=== PATIENT | male | born 1960 | race Caucasian/White ===

== ENCOUNTER 2018-05-23 20:22 | Inpatient (IN) | payer OTHER, SELFPAY ==
[~2018-05-23 20:22] MED LIST: ISOVUE-370 76%-LOCM 1 ML ONE
--- NOTE | 2018-05-23 21:08 | RAD ---
PORTABLE AP CHEST X-RAY: 05/23/2018 HISTORY: Worsening shortness of breath. History of scleroderma and emphysema. Raynaud's syndrome. Dyspnea. COMPARISON: None available. FINDINGS: The cardiac silhouette is magnified by projection but does appear mildly enlarged. There is a mild i ncrease in the interstitial densities at each lung base and, to a lesser extent, in the upper lung zo benny. Findings could potentially be related to chronic interstitial lung changes, but asymmetric pulm onary edema or an infectious process are differential considerations. The pulmonary vasculature is w ithin normal limits. The osseous structures are intact. IMPRESSION: Increased interstitial densities bilaterally, greater at each lung base, probably related to chronic interstitial lung changes, as opposed to asymmetric pulmonary edema or an infectious process. POS: [facility]
[2018-05-23] MEDS ORDERED: methylPREDNISolone Sod Succ/PF 125 MG/2 ML VIAL ONE (21:17)
[2018-05-23] MEDS ORDERED: Morphine 4 MG/ML VIAL ONE (21:17)
[2018-05-23] MEDS ORDERED: Ondansetron HCl/PF 4 MG/2 ML Vial ONE (21:17)
[2018-05-23] MEDS ORDERED: Albuterol Sulfate 2.5 mg/3 ml Neb ONE ×3 (21:27→21:28)
--- NOTE | 2018-05-23 22:37 | CT ---
CT ANGIOGRAM THORAX WITH IV CONTRAST AND 3D RECONSTRUCTIONS: 05/23/2018 HISTORY: Shortness of breath. Hypoxia. Scleroderma. History of COPD. COMPARISON: None available. FINDINGS: Vascular calcifications are seen in the thoracic aorta, but the thoracic aorta is normal in caliber w ithout evidence of an aortic dissection. The heart is enlarged. No filling defects are seen in the pulmonary arteries to suggest a pulmonary embolus. There are multiple enlarged lymph nodes seen throughout the mediastinum, including the subc arinal region, as well as soft tissue density in the bilateral hilar regions. Some of these lymph no gavin are calcified. The largest lymph node in the right hilar region measures 3.3 cm x 2.5 cm, with a subcarinal lymph node measuring approximately 2.4 cm in short axis dimension. The largest pretrache al lymph node measures approximately 1.2 cm in short axis dimension, with a prevascular lymph node me asuring 1.4 cm in short axis dimension. There are diffuse emphysematous changes seen throughout the lungs bilaterally, much greater in the up per lobes. There is suggestion of slight honeycombing at the posterior aspect of the lungs bilateral ly. Ground glass opacities are also seen within the lungs bilaterally. Scattered linear reticulatio ns are also present. A few scattered calcified granulomata are seen. There is a 9 mm nodular density in the right middle lobe, adjacent to the mediastinum. An approximately 7 mm pulmonary nodule is seen in the left lower lobe, adjacent to the superior aspect of the major fissure, as well as an adjacent pleural-based nodu lar density, measuring 6 mm. There is a nodular density also seen within the lingula, adjacent to th e mediastinum and margin of the heart, but there does appear to be punctate calcification centrally. No pleural effusion is identified. The visualized upper abdomen demonstrates a normal CT appearance. IMPRESSION: 1. No CT evidence of a pulmonary embolus. 2. Mediastinal and hilar lymphadenopathy. Some of the lymph nodes do demonstrate calcifications. 3. Ground glass opacities within the lungs bilaterally with what appears to be mild honeycombing at the posterior aspect of the lungs bilaterally. Scattered areas of reticulation are also present. Th e findings have the appearance of nonspecific interstitial pneumonia. These findings are probably re lated to the patient's history of scleroderma. 4. Pulmonary nodules bilaterally. A 3 month follow up is suggested. 5. Chronic obstructive pulmonary disease. POS: [facility]
[2018-05-23 23:01] LABS: ALT (SGPT) 18 U/L (8-55); AST (SGOT) 90 U/L (5-34); Albumin 2.7 g/dL (3.5-5.0); Alkaline Phosphatase 92 U/L (40-150); Anion Gap 17 mmol/L (10-20); BUN (Urea Nitrogen) 45 mg/dL (8.4-25.7); Bilirubin, Total 1.3 mg/dL (0.2-1.2); Calc. Creatinine Clearance 0 mL/min (70-130); Carbon Dioxide 14 mmol/L (22-29); Chloride 102 mmol/L (98-107); Estimated GFR-MDRD 53; Globulin 5.5 g/dL (2.4-3.5); Glucose 92 mg/dL (70-105); Protein, Total 8.1 g/dL (6.0-8.3); Sodium 128 mmol/L (136-145)
[2018-05-23 23:07] LABS: Hemoglobin 6.1 g/dL (14.0-18.0); Mean Corpuscular HGB CONC 32.6 g/dL (32.0-36.0); Mean Corpuscular Hemoglobin 32.4 pg (27.0-31.0); Mean Corpuscular Volume 99.4 fL (78.0-98.0); Red Blood Cell (RBC) Count 1.88 mill/uL (4.70-6.10); White Blood Cell (WBC) Count 11.1 thou/uL (4.8-10.8)
[2018-05-23 23:30] LABS: CKMB 3.2 ng/mL (0-6.6); Troponin I 0.121 ng/mL (< 0.028)
[2018-05-23 23:34] LABS: Band 11 % (5-11); Hypochromia SLIGHT = 6-15 cells (100X) (0-5/hpf); Lymphocytes 8 % (21-51); MDiff Complete? YES; Mean Platelet Volume 12.3 fL (7.4-10.4); Monocytes 11 % (0-10); Neutrophil 70 % (42-75); PLT Morphology Comment Appears Adequate; Platelet Count 37 thou/uL (130-400); Polychromasia SLIGHT = 2-3 cells (100X) (0-2/hpf); RBC Distribution Width 27.8 % (11.5-14.5)
[2018-05-23 23:45] LABS: INR-International Normal Ratio 1.4; PTT 35.7 SEC (22.9-36.1); Prothrombin Time 17.6 SEC (12.0-14.7)
[2018-05-23 23:47] LABS: Iron 75 ug/dL (65-175); Iron Binding Capacity, Total 209 mcg/dL (261-462)
[2018-05-24] MEDS ORDERED: Ondansetron HCl/PF 4 MG/2 ML Vial IVP PRN (00:35)
[2018-05-24] MEDS ORDERED: Ondansetron ODT 4 MG TAB SL PRN (00:35)
[2018-05-24] MEDS ORDERED: Acetaminophen 325 MG TAB PO PRN ×2 (00:35→03:04)
[2018-05-24 01:06] VITALS: BMI 21.2
[2018-05-24] MEDS ORDERED: Albuterol Sulfate 2.5 mg/3 ml Neb NEB PRN (03:04)
[2018-05-24] MEDS ORDERED: Acetaminophen 650 MG Suppository PR PRN (03:04)
[2018-05-24] MEDS ORDERED: HYDROcodone/Acetaminophen 5/325 mg Tablet PO PRN (03:04)
[2018-05-24] MEDS: HYDROcodone/Acetaminophen 5/325 mg Tablet PO PRN ×4 (04:25→21:19)
[2018-05-24 08:30] LABS: Anion Gap 16 mmol/L (10-20); BUN (Urea Nitrogen) 42 mg/dL (8.4-25.7); Calc. Creatinine Clearance 49 mL/min (70-130); Calcium 8.4 mg/dL (7.8-10.44); Carbon Dioxide 15 mmol/L (22-29); Chloride 99 mmol/L (98-107); Estimated GFR-MDRD 51; Glucose 193 mg/dL (70-105); Potassium 4.9 mmol/L (3.5-5.1); Sodium 125 mmol/L (136-145)
[2018-05-24] MEDS: Famotidine 20 MG TAB PO SCH ×2 (08:33→21:17)
[2018-05-24 08:40] LABS: Hemoglobin 9.2 g/dL (14.0-18.0); Mean Corpuscular HGB CONC 32.9 g/dL (32.0-36.0); Mean Corpuscular Hemoglobin 31.1 pg (27.0-31.0); Mean Corpuscular Volume 94.7 fL (78.0-98.0); Mean Platelet Volume 15.5 fL (7.4-10.4); Platelet Count 20 thou/uL (130-400); Red Blood Cell (RBC) Count 2.96 mill/uL (4.70-6.10); White Blood Cell (WBC) Count 5.4 thou/uL (4.8-10.8)
[2018-05-24 10:07] LABS: #Eosinphils 0.1 thou/uL (0.0-0.7); #Lymphocytes 0.5 thou/uL (1.20-3.40); #Monocytes 0.1 thou/uL (0.11-0.59); #Neutrophils 4.7 thou/uL (1.40-6.50); %Basophils 0.1 % (0.0-1.0); %Eosinophils 1.2 % (0.0-10.0); %Monocytes 1.6 % (0.0-10.0); %Neutrophils 87.1 % (42.0-75.0); Large Platelets SLIGHT; MDiff Complete? YES; PLT Morphology Comment Appears Decreased
--- NOTE | 2018-05-24 11:51 | CON ---
DATE OF CONSULTATION: 05/24/2018 HISTORY OF PRESENT ILLNESS: The patient is a 57-year-old male who was in his normal state of health until a few weeks prior to admission when he began having progressive shortness of breath. This worsened much more yesterday and he came to the emergency room. He denies any melena, hematoch ezia, any abdominal pain, any nausea or vomiting. He has lost a bunch of weight recently, he says be cause of the anorexia and some nausea. He has had hepatitis C in the past, but has never been told h e was cirrhotic. He does not recall having a liver biopsy. His first recollection for hepatitis C w as 30 years ago when he was on the oil [place]. He got sick and went to the hospital, but he has not had any problems since. He drank alcohol up until approximately 6 months ago. PAST MEDICAL HISTORY: Includes scleroderma, Raynaud's disease, chronic obstructive pulmonary disease , hepatitis C. PAST SURGICAL HISTORY: Partial colectomy for diverticulitis, appendectomy. MEDICATIONS: CellCept 500 mg 2 p.o. b.i.d., prednisone 10 mg 1 p.o. daily, hydroxyzine 25 mg 1 p.o. daily, spironolactone 50 mg 1 p.o. daily, nifedipine 30 mg 1 p.o. daily. ALLERGIES: No known allergies. SOCIAL HISTORY: He continues to smoke. He stopped drinking alcohol 6 months ago. FAMILY HISTORY: Negative for GI or liver disease. REVIEW OF SYSTEMS: CONSTITUTIONAL: Positive for weight loss. Negative for fever or chills. EYES: No blurred vision or double vision. ENT: No sore throat or earaches. PULMONARY: Positive for shortness of breath. Positive for dyspnea on exertion. CARDIOVASCULAR: No chest pain or palpitations. GI: See above. GENITOURINARY: No hematuria or dysuria. MUSCULOSKELETAL: Positive for scleroderma. SKIN: Positive for scleroderma. NEUROLOGIC: No numbness or seizure activity. PHYSICAL EXAMINATION: GENERAL: Shows a thin white male in no acute distress. VITAL SIGNS: Temperature 98.2, pulse 91, respiratory rate 19, blood pressure 136/82. HEENT: Unremarkable. NECK: Supple. CHEST: Clear. CARDIOVASCULAR: Regular rate and rhythm. ABDOMEN: Soft, nontender, without organomegaly or masses. Bowel sounds are present and normoactive. He has a well healed surgical scar in the midline. RECTAL: Deferred. EXTREMITIES: Normal. NEUROLOGIC: Nonfocal. LABORATORY: Shows a white blood cell count 11.1, hemoglobin 6.1, hematocrit 18.6 with a platelet cou nt of 37,000. Repeat showed a white blood cell count of 5.4, hemoglobin 9.2, hematocrit 28.0 with a platelet count of 20,000. PT is 17.6 with an INR of 1.4. Chemistry on admission shows sodium 128, C O2 14, BUN 45, creatinine 1.38, total bilirubin 1.3, AST 90. BMP 145, albumin 2.7. Iron is 75, TIBC of 209, ferritin is 1668. CT angio showed no evidence of pulmonary embolism, mediastinal and hilar lymphadenopathy, ground glas s opacities in the lung. ASSESSMENT: 1. Symptomatic macrocytic anemia. 2. Severe thrombocytopenia. 3. Chronic obstructive pulmonary disease. 4. Scleroderma. 5. History of hepatitis C without history of cirrhosis. 6. Chronic obstructive pulmonary disease. RECOMMENDATIONS: 1. Proton pump inhibitor. 2. We will hold on endoscopy at this time considering the patient's severe thrombocytopenia. 3. Platelet transfusion if any signs of gastrointestinal bleeding. 4. Repeat labs. 5. Hemochromatosis laboratory. 6. Vitamin B12. 7. Folate. 8. We will follow with you.
--- NOTE | 2018-05-24 14:22 | PDOC.PN ---
- Subjective Encounter Start Date: 05/24/18 Encounter Start Time: 07:30 Subjective: no bleeding per rectum -: no sob or chest pain - Objective Resuscitation Status: Resuscitation Status FULL:Full Resuscitation MAR Reviewed: Yes Vital Signs & Weight: Vital Signs (12 hours) Temp Pulse Pulse Resp BP BP Pulse Ox 05/24/18 10:59 98.2 F 91 19 136/82 100 05/24/18 10:24 93 16 99 05/24/18 07:44 97.7 F 97 20 100 05/24/18 07:27 97.7 F 97 20 138/80 100 05/24/18 07:12 88 18 100 05/24/18 06:54 97.8 F 93 21 H 139/79 100 05/24/18 04:39 97.4 F L 100 22 H 154/71 H 100 05/24/18 04:05 97.9 F 98 20 147/76 H 100 05/24/18 04:00 97.9 F 98 20 147/76 H 100 Weight Weight 135 lb 11.2 oz I&O: 05/23/18 05/24/18 05/25/18 06:59 06:59 06:59 Intake Total 1250 Output Total 500 Balance 750 Result Diagrams: 05/24/18 07:50 05/24/18 07:50 Phys Exam - Physical Examination HEENT: PERRLA, moist MMs Neck: no JVD, supple Respiratory: no wheezing, no rales Cardiovascular: RRR, no significant murmur Gastrointestinal: soft, no distention, positive bowel sounds Musculoskeletal: no edema, pulses present Neurological: non-focal, moves all 4 limbs Psychiatric: normal affect, A&O x 3 Dx/Plan (1) Anemia Code(s): D64.9 - ANEMIA, UNSPECIFIED Status: Acute Qualifiers: Anemia type: other cause Other causes of anemia: chronic disease, other Qualified Code(s): D63.8 - Anemia in other chronic diseases classified elsewhere (2) CLEO (acute kidney injury) Code(s): N17.9 - ACUTE KIDNEY FAILURE, UNSPECIFIED Status: Acute (3) Hyponatremia Code(s): E87.1 - HYPO-OSMOLALITY AND HYPONATREMIA Status: Acute (4) COPD exacerbation Code(s): J44.1 - CHRONIC OBSTRUCTIVE PULMONARY DISEASE W (ACUTE) EXACERBATION Status: Acute (5) Scleroderma Code(s): M34.9 - SYSTEMIC SCLEROSIS, UNSPECIFIED Status: Chronic (6) Hepatitis C Code(s): B19.20 - UNSPECIFIED VIRAL HEPATITIS C WITHOUT HEPATIC COMA Status: Chronic Qualifiers: Viral hepatitis chronicity: chronic Hepatic coma status: without hepatic coma Qualified Code(s): B18.2 - Chronic viral hepatitis C (7) Coagulopathy Status: Chronic Comment: likely sec to liver disease (8) Thrombocytopenia Code(s): D69.6 - THROMBOCYTOPENIA, UNSPECIFIED Status: Chronic Comment: likely sec to hep C/?hypersplenism - Plan on steroids, nebs, empiric levaquin -: recieved 2 units prbcs, h/h around 06/25 was 03/15 on arrival -: ferritin is high at 1668 -: says he is on hep C and scleroderma treatment via [facility] -: tx to medical floor, labs in am * . Review of Systems - Medications/Allergies Allergies/Adverse Reactions: Allergies Allergy/AdvReac Type Severity Reaction Status Date / Time No Known Drug Allergies Allergy Verified 05/24/18 04:55 Medications: Current Medications Acetaminophen (Tylenol) 650 mg PO Q4H PRN PRN Reason: Headache/Fever or Pain Acetaminophen (Tylenol) 650 mg [place] Q4H PRN PRN Reason: Headache/Fever or Pain Hydrocodone Bitart/Acetaminophen ([place] 5/325) 1 tab PO Q4H PRN PRN Reason: Moderate Pain (4-6) Hydrocodone Bitart/Acetaminophen ([place] 5/325) 2 tab PO Q4H PRN PRN Reason: Severe Pain (7-10) Last Admin: 05/24/18 11:12 Dose: 2 tab Albuterol Sulfate (Ventolin) 2.5 mg NEB Q2H PRN PRN Reason: Wheezing Albuterol/Ipratropium (Duoneb) 3 ml NEB [id number] [facility] Last Admin: 05/24/18 10:24 Dose: 3 ml Famotidine (Pepcid) 20 mg PO BID [facility] Last Admin: 05/24/18 08:33 Dose: 20 mg Levofloxacin 750 mg/ Device 150 mls @ 100 mls/hr IVPB Q24HR [facility] Methylprednisolone Sodium Succinate (Solu-Medrol) 40 mg IVP Q6HR [facility] Last Admin: 05/24/18 12:07 Dose: 40 mg Pantoprazole Sodium (Protonix) 40 mg IVP Q12HR [facility] Sodium Chloride (Flush - Normal Saline) 10 ml IVF Q12HR [facility] Last Admin: 05/24/18 08:33 Dose: 10 ml Sodium Chloride (Flush - Normal Saline) 10 ml IVF PRN PRN PRN Reason: Saline Flush
[2018-05-24] MEDS: Pantoprazole 40 MG VIAL IVP SCH (21:17)
--- NOTE | 2018-05-25 00:17 | CON ---
DATE OF CONSULTATION: 05/24/2018 Mr. Doss is a 57-year-old, who has scleroderma diagnosis, He has not been told he has scleroderma lung disease. He does have Raynaud's with this. I was consulted because he was present at the Intermediate Care Unit. PAST MEDICAL HISTORY: Remarkable for, 1. Hepatitis C. 2. History of chronic obstructive pulmonary disease. 3. History of diverticulitis, requiring surgery. 4. History of an appendectomy. MEDICATIONS: Prior to admission, he is on CellCept, prednisone, hydroxyzine, Aldactone, nifedipine. SOCIAL HISTORY: He is a smoker, not a drinker. ALLERGIES: He has no drug allergies. FAMILY HISTORY: Negative for lung disease in early age. REVIEW OF SYSTEMS: [place] is, otherwise, negative. He says he feels better since he has been in the hospital. PHYSICAL EXAMINATION: VITAL SIGNS: He is afebrile, heart rate is 91, respiratory rate is 19, oximetry is 100% on room air, blood pressure 136/82. HEENT: Pupils are equal. Sclerae is anicteric. NECK: Supple, no lymphadenopathy. LUNGS: Remarkable for crackles at both lung bases. HEART: Regular rhythm. S1 and S2 are normal. ABDOMEN: Soft and nontender. EXTREMITIES: With sausage digits consistent with sclerodactyly. He also has cold fingertips and says, when in the wintertime, his fingertips turn purple. I reviewed his CT. He has an increased interstitial markings and apical bullous changes. IMPRESSION: 1. Scleroderma. 2. Mediastinal lymphadenopathy with calcifications, suggestive of old granulomatous disease. 3. Probable interstitial lung disease with the scleroderma. 4. Dyspnea on exertion that could be multifactorial. He definitely needs an echocardiogram while he is here. 5. Anemia and thrombocytopenia, which is more likely related to his chronic disease and blood loss. We are happy to follow along with the other physicians caring for him. He does not appear acutely ill at this point in time, and fortunately, he says he is feeling better. It is hard to separate out how much of his pulmonary abnormalities are related to chronic obstructive pulmonary disease. He does have apical bullous changes, but he also has an increase in interstitial markings and some ground-glass changes that are worrisome for scleroderma interstitial lung disease. We will try to get a good set of pulmonary function tests to see if this helps to sort through this. This is a 50 minute consult with 50% of time spent coordinating care MTDD
[2018-05-25] MEDS: HYDROcodone/Acetaminophen 5/325 mg Tablet PO PRN ×3 (03:44→17:38)
[2018-05-25 04:37] LABS: Platelet Count 18 thou/uL (130-400)
[2018-05-25 05:01] LABS: Band 37 % (5-11); Hemoglobin 7.9 g/dL (14.0-18.0); Lymphocytes 5 % (21-51); MDiff Complete? YES; Mean Corpuscular HGB CONC 33.8 g/dL (32.0-36.0); Mean Corpuscular Hemoglobin 32.4 pg (27.0-31.0); Mean Corpuscular Volume 95.7 fL (78.0-98.0); Mean Platelet Volume 15.5 fL (7.4-10.4); Metamyelocyte 3 % (0-0); Monocytes 5 % (0-10); Myelocyte 1 % (0-0); Neutrophil 49 % (42-75); PLT Morphology Comment Appears Decreased; RBC Distribution Width 26.5 % (11.5-14.5); Red Blood Cell (RBC) Count 2.44 mill/uL (4.70-6.10); White Blood Cell (WBC) Count 10.1 thou/uL (4.8-10.8)
[2018-05-25 05:40] LABS: Folate (Folic Acid) 16.7 ng/mL (7.0-31.4)
[2018-05-25 08:40] LABS: ALT (SGPT) 18 U/L (8-55); AST (SGOT) 100 U/L (5-34); Albumin 2.7 g/dL (3.5-5.0); Alkaline Phosphatase 86 U/L (40-150); Anion Gap 16 mmol/L (10-20); BUN (Urea Nitrogen) 48 mg/dL (8.4-25.7); Bilirubin, Total 1.8 mg/dL (0.2-1.2); Calc. Creatinine Clearance 47 mL/min (70-130); Calcium 8.3 mg/dL (7.8-10.44); Carbon Dioxide 16 mmol/L (22-29); Chloride 99 mmol/L (98-107); Estimated GFR-MDRD 48; Globulin 5.4 g/dL (2.4-3.5); Glucose 110 mg/dL (70-105); Potassium 4.7 mmol/L (3.5-5.1); Protein, Total 8.1 g/dL (6.0-8.3); Sodium 126 mmol/L (136-145)
[2018-05-25] MEDS: Pantoprazole 40 MG VIAL IVP SCH ×2 (08:43→20:07)
[2018-05-25] MEDS: Famotidine 20 MG TAB PO SCH ×2 (08:43→20:06)
[2018-05-25] MEDS: Cefepime 1 GM in Sodium Chloride 0.9% 100 ML IVPB SCH (08:44)
--- NOTE | 2018-05-25 09:01 | ULT ---
ULTRASOUND HEPATIC DOPPLER: Date: 05/25/18 HISTORY: Hepatitis C, weight loss, nausea. COMPARISON: None. TECHNIQUE: Real-time Goodman scale with color flow and spectral analysis of the liver was performed. FINDINGS: Visualized portions of the aorta unremarkable. Hepatic echotexture is somewhat heterogeneous. No mass . Normal directional flow within the hepatic arteries, portal veins, hepatic veins, splenic artery an d vein. There is adenomyomatosis of the gallbladder wall. No pericholecystic fluid. Common bile duct is normal. Right kidney measures 9.9 x 4.6 x 5.2 cm with a subcentimeter cyst. Left kidney measures 11.2 x 5.2 x 4.7 cm with a 1.0 cm cyst. Spleen is normal. IMPRESSION: Normal examination. Normal directional flow. POS: [facility]
[2018-05-25] MEDS ORDERED: VANCOMYCIN IVPB PRN (09:57)
[2018-05-25] MEDS ORDERED: Vancomycin HCl 1 GM in Premix Bag 1 BAG IVPB SCH (10:00)
[2018-05-25] MEDS: Vancomycin HCl 1 GM in Premix Bag 1 BAG IVPB SCH (11:30)
--- NOTE | 2018-05-25 12:01 | PDOC.PN ---
- Subjective Encounter Start Date: 05/25/18 Encounter Start Time: 11:50 Subjective: has exertional sob, is amb in room -: no chest pain or palp -: no fever or abd pain, last BM was 3 days back - Objective Resuscitation Status: Resuscitation Status FULL:Full Resuscitation MAR Reviewed: Yes Vital Signs & Weight: Vital Signs (12 hours) Temp Pulse Resp BP Pulse Ox 05/25/18 11:29 98.2 F 102 H 12 159/88 H 92 L 05/25/18 08:00 97.6 F 95 16 95 05/25/18 07:32 97.6 F 95 157/83 H 95 05/25/18 06:02 82 16 96 05/25/18 03:50 97.8 F 87 19 148/76 H 95 05/25/18 02:15 74 16 Weight Weight 135 lb 11.2 oz I&O: 05/24/18 05/25/18 05/26/18 06:59 06:59 06:59 Intake Total 1250 1330 Output Total 500 1375 Balance 750 -45 Result Diagrams: 05/25/18 03:45 05/25/18 03:35 Phys Exam - Physical Examination HEENT: PERRLA, moist MMs Neck: no JVD, supple Respiratory: no rales, no rhonchi Cardiovascular: RRR, no significant murmur Gastrointestinal: soft, non-tender, positive bowel sounds distention+, no rigidity or guarding Musculoskeletal: pulses present, edema present Neurological: non-focal, moves all 4 limbs Psychiatric: normal affect, A&O x 3 Dx/Plan (1) Anemia Code(s): D64.9 - ANEMIA, UNSPECIFIED Status: Acute Qualifiers: Anemia type: other cause Other causes of anemia: chronic disease, other Qualified Code(s): D63.8 - Anemia in other chronic diseases classified elsewhere (2) CLEO (acute kidney injury) Code(s): N17.9 - ACUTE KIDNEY FAILURE, UNSPECIFIED Status: Acute (3) Hyponatremia Code(s): E87.1 - HYPO-OSMOLALITY AND HYPONATREMIA Status: Acute (4) COPD exacerbation Code(s): J44.1 - CHRONIC OBSTRUCTIVE PULMONARY DISEASE W (ACUTE) EXACERBATION Status: Suspected Comment: likely interstitial lung disease with h/o scleroderma (5) Scleroderma Code(s): M34.9 - SYSTEMIC SCLEROSIS, UNSPECIFIED Status: Chronic (6) Hepatitis C Code(s): B19.20 - UNSPECIFIED VIRAL HEPATITIS C WITHOUT HEPATIC COMA Status: Chronic Qualifiers: Viral hepatitis chronicity: chronic Hepatic coma status: without hepatic coma Qualified Code(s): B18.2 - Chronic viral hepatitis C (7) Coagulopathy Status: Chronic Comment: likely sec to liver disease (8) Thrombocytopenia Code(s): D69.6 - THROMBOCYTOPENIA, UNSPECIFIED Status: Chronic Comment: likely sec to hep C/?hypersplenism (9) Immunocompromised Code(s): D84.9 - IMMUNODEFICIENCY, UNSPECIFIED Status: Acute Comment: on cellcept and prednisone (10) Sepsis Code(s): A41.9 - SEPSIS, UNSPECIFIED ORGANISM Status: Suspected Qualifiers: Sepsis type: sepsis due to unspecified organism Qualified Code(s): A41.9 - Sepsis, unspecified organism - Plan will obtain hawthorne cultures, is immunocompromized, has 37% bands -: renal function is holding up, h/h around 05/20 -: on solumedrol, protonix bid and levaquin -: bowel regimen, ruq usg was -ve for ac abnormalities -: for PFT's at some point, nebs, hco3 is 15, sod is 125 * . Review of Systems - Medications/Allergies Allergies/Adverse Reactions: Allergies Allergy/AdvReac Type Severity Reaction Status Date / Time No Known Drug Allergies Allergy Verified 05/24/18 04:55 Medications: Current Medications Acetaminophen (Tylenol) 650 mg PO Q4H PRN PRN Reason: Headache/Fever or Pain Acetaminophen (Tylenol) 650 mg [place] Q4H PRN PRN Reason: Headache/Fever or Pain Hydrocodone Bitart/Acetaminophen ([place] 5/325) 1 tab PO Q4H PRN PRN Reason: Moderate Pain (4-6) Hydrocodone Bitart/Acetaminophen ([place] 5/325) 2 tab PO Q4H PRN PRN Reason: Severe Pain (7-10) Last Admin: 05/25/18 08:42 Dose: 2 tab Albuterol Sulfate (Ventolin) 2.5 mg NEB Q2H PRN PRN Reason: Wheezing Albuterol/Ipratropium (Duoneb) 3 ml NEB Q3MT-MK [facility] Last Admin: 05/25/18 10:24 Dose: Not Given Famotidine (Pepcid) 20 mg PO BID [facility] Last Admin: 05/25/18 08:43 Dose: Not Given Cefepime HCl 1 gm/ Sodium (Chloride) 100 mls @ 200 mls/hr IVPB Q24HR [facility] Last Admin: 05/25/18 08:44 Dose: 100 mls Vancomycin HCl 1 gm/ Device 200 mls @ 200 mls/hr IVPB 1000 [facility] Last Admin: 05/25/18 11:30 Dose: 200 mls Methylprednisolone Sodium Succinate (Solu-Medrol) 40 mg IVP Q6HR [facility] Last Admin: 05/25/18 11:31 Dose: 40 mg Miscellaneous Medication (Pharmacy To Dose) 1 each IVPB PRN PRN PRN Reason: Pharmacy to dose Pantoprazole Sodium (Protonix) 40 mg IVP Q12HR [facility] Last Admin: 05/25/18 08:43 Dose: 40 mg Sodium Chloride (Flush - Normal Saline) 10 ml IVF Q12HR [facility] Last Admin: 05/25/18 08:44 Dose: 10 ml Sodium Chloride (Flush - Normal Saline) 10 ml IVF PRN PRN PRN Reason: Saline Flush
--- NOTE | 2018-05-25 14:41 | PRG ---
DATE OF SERVICE: 05/25/2018 SUBJECTIVE: Mr. Doss said he is feeling better. PHYSICAL EXAMINATION: VITAL SIGNS: He has not been febrile. Heart rate is 95-102, respiratory rate is in the teens, oximetry is 92%-95% on 2 liters and blood pressure 159/88. LUNGS: Still remarkable for crackles at his lung bases. HEART: Regular rhythm. ABDOMEN: Soft and nontender. EXTREMITIES: Without asymmetry. LABORATORY DATA: The cultures were drawn when he is in the emergency room. His white count today is 10.1, hemoglobin 7.9, platelets are 18,000. He has 37 % bands on his peripheral smear, 3% metamyelocytes, 1% myelocytes. Sodium 126, potassium 4.7, chloride 99, bicarbonate 16, BUN 48 and creatinine 1.51. Intake and output was negative 45. IMPRESSION: 1. Scleroderma. 2. Respiratory complaints consisting mainly of dyspnea on admission. He is a smoker, but does not ever appear to have undergone pulmonary function tests. His CT does show fairly scattered and extensive bullous disease. I have no doubt he has COPD and much of his dyspnea may be related to that, but he also has some ground glass abnormalities that could be consistent with scleroderma. He has mediastinal lymph nodes, but most of these are calcified arguing that is all old granulomatous disease. He is on broad spectrum antimicrobial therapy. He does not clearly have any localizing symptoms. He had an abdominal ultrasound done that was unremarkable. Other issues include, 1. Hyponatremia. 2. Non-anion gap metabolic acidosis with renal insufficiency 3. Elevated liver enzymes with a mildly increased bilirubin with normal ultrasound. 4. Chronic CellCept use. 5. Hypoalbuminemia. 6. Thrombocytopenia and anemia. He had 1.3 grams drop in hemoglobin overnight. Probably would be best if there is an input from Infectious Disease in this setting. I do not strongly feel that he needs bronchoscopy or lavage at this point given that he says he is clinically improving. I have ordered an echocardiogram just to see if we can get an estimated pulmonary artery pressures. Blood cultures were ordered by the hospitalist today. We will continue to follow with the other physician's caring for him. [facility]
--- NOTE | 2018-05-25 16:11 | PRG ---
DATE OF SERVICE: 05/25/2018 SUBJECTIVE: The patient is feeling about the same. He has no GI complaints other than not having a bowel movement for several days. OBJECTIVE: VITAL SIGNS: Temperature 98.2, pulse 85, respiratory rate 16, blood pressure 159/88. CHEST: Clear. CARDIOVASCULAR: Regular rate and rhythm. ABDOMEN: Soft, nontender, without organomegaly or masses. Bowel sounds are present and normoactive. LABORATORY DATA: Shows a sodium of 126, CO2 of 16, BUN 48, creatinine 1.51, glucose 110, total bilir ubin 1.8, AST of 100. Albumin 2.7. Alpha fetoprotein is less than 2. Vitamin B12 is 583 and folate is 16.7. CBC shows a white blood cell count 10.1, hemoglobin of 7.9, hematocrit 23.4, platelet coun t is 18,000. Abdominal ultrasound shows normal examination with normal directional blood flow. ASSESSMENT: 1. Anemia. 2. Severe thrombocytopenia - no evidence for portal hypertension. 3. Chronic obstructive pulmonary disease. 4. Scleroderma. 5. History of hepatitis C. RECOMMENDATIONS: 1. Proton pump inhibitor. 2. Hold on endoscopy at this time considering the patient's severe thrombocytopenia. 3. Platelet transfusion if any signs of GI bleeding. 4. Hematology opinion. 5. We will follow with you.
[2018-05-26 06:00] LABS: ALT (SGPT) 25 U/L (8-55); AST (SGOT) 138 U/L (5-34); Albumin 2.8 g/dL (3.5-5.0); Alkaline Phosphatase 90 U/L (40-150); Anion Gap 19 mmol/L (10-20); BUN (Urea Nitrogen) 62 mg/dL (8.4-25.7); Bilirubin, Total 2.3 mg/dL (0.2-1.2); Calc. Creatinine Clearance 37 mL/min (70-130); Calcium 8.8 mg/dL (7.8-10.44); Carbon Dioxide 14 mmol/L (22-29); Chloride 99 mmol/L (98-107); Estimated GFR-MDRD 37; Globulin 5.6 g/dL (2.4-3.5); Glucose 123 mg/dL (70-105); Potassium 4.6 mmol/L (3.5-5.1); Protein, Total 8.4 g/dL (6.0-8.3); Sodium 127 mmol/L (136-145)
--- NOTE | 2018-05-26 07:38 | CON ---
DATE OF CONSULTATION: 05/25/2018 REASON FOR CONSULTATION: Dyspnea; scleroderma, on immunosuppressive medications ; and left shift in peripheral WBC count. HISTORY OF PRESENT ILLNESS: A 57-year-old who has a history of COPD, newly diagnosed scleroderma about a year ago as well as chronic hepatitis C with previous failed treatment. The index diagnosis scleroderma was made last year when he developed Raynaud's phenomenon. Subsequently, he developed those skin changes, particularly in the hands, typical scleroderma, has been referred to [place] and was screened for a trial, but he was not accepted and has been referred to Dr. Purvis locally, on CellCept plus 20 mg of prednisone daily for management. Over the past few days, he has noticed worsening shortness of breath, some cough, no sputum production or chest pain. No headaches, no visual symptoms. No sore throat, odynophagia, or dysphagia. No abdominal pain or diarrhea. No genitourinary symptoms. He has chronic joint pains which are unchanged. PAST MEDICAL HISTORY: Scleroderma, Raynaud's disease, COPD with emphysema, chronic hepatitis C with failed treatment in the past. PAST SURGICAL HISTORY: Appendectomy and partial colectomy. SOCIAL HISTORY: Never used alcoholic beverages. He smokes daily. His does do. FAMILY HISTORY: Noncontributory. CURRENT MEDICATIONS: In the hospital include Solu-Medrol 20 mg q.6 hours, cefepime, [place], Ventolin, famotidine, pantoprazole, and vancomycin. PHYSICAL EXAMINATION: VITAL SIGNS: Temperature has been within normal limits. T-max 98.2, blood pressure 145/74, pulse 92, O2 sat 95%. SKIN: Not remarkable except for the decreased pliability of skin of the distal upper extremities with difficulty in closing the fingers into the fist. No lymphadenopathy. HEENT: Ocular movements are conjugate. Sclerae white. Pupils are equal. Oral cavity normal. NECK: Supple, no jugular vein distention. LUNGS: Symmetric air entry without obvious crackles or wheezing. HEART: S1, S2, regular rate. No S3 or S4. ABDOMEN: Soft, not distended or tender. No ascites. No bladder distention. EXTREMITIES: He is able to move extremities on command. NEUROLOGIC: Cognitive function appears to be intact. LABORATORY DATA AND IMAGING: White cell count is 11.1, down to 10.1. Hemoglobin 7.9, MCV 95, platelets were 37, now 18, neutrophil percentage 49%, myelocytes 3, lymphocytes 5. INR 1.4. Sodium 126, creatinine is down to 1.51, AST 100, bilirubin 1.8, ferritin 1600. Albumin 2.7. Microbiology: We have a stool occult blood which was negative. The patient had a chest CT scan with angiogram with no evidence of pulmonary embolism and with mediastinal and hilar adenopathy, ground-glass opacities within the lungs bilaterally, mild honeycombing posteriorly. ASSESSMENT: 1. Scleroderma with Raynaud's. 2. New onset of general malaise, dyspnea and a leukoerythroblastic response in the peripheral blood smear. DISCUSSION: Differential diagnosis includes scleroderma crisis, opportunistic infectious process including fungal such as Cryptococcus neoformans, histoplasmosis, pneumocystis as well as viral infections including community- acquired viral infections and cytomegalovirus reactivation. We will submit assays for the above, monitor blood cultures. Since he has a long hx of smoking and developed scleroderma recently, the possibility of para-neoplastic scleroderma needs to be considered. MTDD
[2018-05-26] MEDS: Cefepime 1 GM in Sodium Chloride 0.9% 100 ML IVPB SCH (08:22)
[2018-05-26 08:23] VITALS: BP 152/89; TEMP 97.8
[2018-05-26] MEDS: Pantoprazole 40 MG VIAL IVP SCH (08:23)
[2018-05-26] MEDS: Famotidine 20 MG TAB PO SCH (08:23)
[2018-05-26] MEDS: HYDROcodone/Acetaminophen 5/325 mg Tablet PO PRN ×2 (08:34→15:33)
[2018-05-26] MEDS ORDERED: Prevnar 13-Val Conj/PF 0.5 ML SYRINGE IM ONE (09:00)
[2018-05-26 10:44] LABS: Hemoglobin 7.9 g/dL (14.0-18.0); Mean Corpuscular Hemoglobin 31.4 pg (27.0-31.0); Mean Corpuscular Volume 95.3 fL (78.0-98.0); Mean Platelet Volume 16.4 fL (7.4-10.4); Platelet Count 15 thou/uL (130-400); RBC Distribution Width 31.4 % (11.5-14.5); Red Blood Cell (RBC) Count 2.52 mill/uL (4.70-6.10); White Blood Cell (WBC) Count 13.2 thou/uL (4.8-10.8)
[2018-05-26] MEDS: Vancomycin HCl 1 GM in Premix Bag 1 BAG IVPB SCH (10:46)
[2018-05-26 11:03] LABS: Anisocytosis MARKED = >30 cells (100X) (0-5/hpf); Band 22 % (5-11); Bite Cells SLIGHT = 2-5 cells (100X) (0-1/hpf); Large Platelets MODERATE; Lymphocytes 13 % (21-51); MDiff Complete? YES; Metamyelocyte 7 % (0-0); Monocytes 5 % (0-10); Myelocyte 3 % (0-0); Neutrophil 49 % (42-75); Nucleated RBC 12 % (0); PLT Morphology Comment Appears Decreased; Polychromasia MARKED = >4 cells (100X) (0-2/hpf); Reactive Lymphocytes 1 % (0-10); Schistocytes MODERATE= 6-15 cells (100X) (0-1/hpf); Spherocytes SLIGHT = 1-5 cells (100X) (None Seen)
--- NOTE | 2018-05-26 11:34 | CON ---
DATE OF CONSULTATION: 05/26/2018 REASON FOR CONSULTATION: Elevated creatinine. HISTORY OF PRESENT ILLNESS: This is a very pleasant 57-year-old gentleman with a history of hepatiti s C and a baseline creatinine of 1.3 on 05/23/2018, it has increased to 1.9 today. The patient also has a history of COPD, hepatitis C, and scleroderma and has been treated for mycophenolate as well as prednisone. The patient has had a blood pressures, which increased from 150s to 170s. The patient denies any leg swelling, nausea, vomiting or chest pain. PAST MEDICAL HISTORY: End-stage renal disease, scleroderma, COPD, hepatitis C with failed treatment, history of appendectomy, and colectomy. SOCIAL/ECONOMIC HISTORY: No alcohol or illicit drug use. FAMILY HISTORY: Negative for ESRD. ALLERGIES: Reviewed. HOME MEDICATIONS: List reviewed. REVIEW OF SYSTEMS: A 15-point review of systems was performed and negative except all noted above. GENERAL: Weakness- HEAD: Headache- NECK: No swelling or lumps. NOSE: No epistaxis or discharge. EYES: No diplopia or pain. RESPIRATORY: Dyspnea- CARDIOVASCULAR: Chest pain- GASTROINTESTINAL: Nausea- /FOOD BROKER: Hematuria- MUSCULOSKELETAL: No joint pain. NEUROPSYCHIATIC SYSTEMS: No suicidal ideation. No ideation. SKIN: Denies any rash or ulcer. CONSTITUTIONAL: No fever or chills. PHYSICAL EXAMINATION: GENERAL: Patient is awake and alert. VITAL SIGNS: Afebrile, pulse 95, breathing 16, and blood pressure 150/89. GENERAL: Patient is awake and alert. VITAL SIGNS: Afebrile, pulse 75, breathing 16, blood pressure 129/82. GENERAL APPEARANCE AND MENTAL STATUS: Fair. HEAD/NECK: Normocephalic. Atraumatic. EYES: EOMI. No deformity. EARS: Clear. No ulcers. NOSE: Intact. No lesions. MOUTH: Clear. No discharge. THROAT: Clear. No exudate. LUNGS: Clear. No crackles. CARDIAC: S1, S2. No rub. ABDOMEN: Benign. BS+. GENITALIA/RECTUM: Sabillon absent. BACK/EXTREMITIES: Edema 0+ Ulcer- NEUROLOGICAL: Alert and motor intact. SKIN: Rash- Bruise- LABORATORY DATA: Sodium 127, creatinine 1.8. ASSESSMENT AND RECOMMENDATIONS: 1. Acute kidney injury with chronic kidney disease, different etiologies include scleroderma renal c risis versus hepatitis C induced cryoglobulinemia and/or sepsis associated or interaction with antibi otic therapy and/or other possibilities include TTP, which should be ruled out. There is no urgent i ndication to do a renal biopsy. 2. Metabolic acidosis, stable. 3. Medications based on glomerular filtration rate are appropriate.
--- NOTE | 2018-05-26 12:44 | EKG ---
Test Reason : Blood Pressure : / mmHG Vent. Rate : 104 BPM Atrial Rate : 104 BPM P-R Int : 124 ms QRS Dur : 090 ms QT Int : 318 ms P-R-T Axes : 044 042 054 degrees QTc Int : 418 ms Sinus tachycardia Otherwise normal ECG Confirmed by FAM AGARWAL D.O. ([id number]), primer expeditor and drier ARTIE YI ([id number] on 05/26/2018 12:44:14 PM Referred By: Confirmed By:FAM AGARWAL D.O.
[2018-05-26 14:39] LABS: Reticulocyte Count 20.3 % (0.5-1.5)
--- NOTE | 2018-05-26 14:53 | PDOC.PN ---
- Subjective Encounter Start Date: 05/26/18 Encounter Start Time: 12:00 Subjective: no bleeding per rectum -: has sob+, abdominal fullness+ - Objective Resuscitation Status: Resuscitation Status FULL:Full Resuscitation MAR Reviewed: Yes Vital Signs & Weight: Vital Signs (12 hours) Temp Pulse Resp BP Pulse Ox 05/26/18 14:42 105 H 20 95 05/26/18 11:22 110 H 16 05/26/18 08:00 97.8 F 82 18 152/89 H 97 05/26/18 06:57 95 05/26/18 06:54 100 16 95 05/26/18 04:00 98.0 F 98 18 160/88 H 92 L Weight Weight 135 lb 11.2 oz I&O: 05/25/18 05/26/18 05/27/18 06:59 06:59 06:59 Intake Total 1330 625 240 Output Total 1375 780 Balance -45 -155 240 Result Diagrams: 05/26/18 10:24 05/26/18 05:08 Phys Exam - Physical Examination HEENT: moist MMs Neck: no JVD, supple Respiratory: no wheezing, no rales Cardiovascular: RRR, no significant murmur Gastrointestinal: soft, positive bowel sounds Musculoskeletal: pulses present, edema present Neurological: non-focal, moves all 4 limbs Psychiatric: normal affect, A&O x 3 Dx/Plan (1) Vasculitis Code(s): I77.6 - ARTERITIS, UNSPECIFIED Status: Suspected (2) TTP (thrombotic thrombocytopenic purpura) Code(s): M31.1 - THROMBOTIC MICROANGIOPATHY Status: Suspected (3) Anemia Code(s): D64.9 - ANEMIA, UNSPECIFIED Status: Acute Qualifiers: Anemia type: acquired or hereditary hemolytic anemia (4) CLEO (acute kidney injury) Code(s): N17.9 - ACUTE KIDNEY FAILURE, UNSPECIFIED Status: Acute (5) Hyponatremia Code(s): E87.1 - HYPO-OSMOLALITY AND HYPONATREMIA Status: Acute (6) COPD exacerbation Code(s): J44.1 - CHRONIC OBSTRUCTIVE PULMONARY DISEASE W (ACUTE) EXACERBATION Status: Suspected Comment: likely interstitial lung disease with h/o scleroderma (7) Scleroderma Code(s): M34.9 - SYSTEMIC SCLEROSIS, UNSPECIFIED Status: Chronic (8) Hepatitis C Code(s): B19.20 - UNSPECIFIED VIRAL HEPATITIS C WITHOUT HEPATIC COMA Status: Chronic Qualifiers: Viral hepatitis chronicity: chronic Hepatic coma status: without hepatic coma Qualified Code(s): B18.2 - Chronic viral hepatitis C (9) Coagulopathy Status: Chronic Comment: likely sec to liver disease (10) Thrombocytopenia Code(s): D69.6 - THROMBOCYTOPENIA, UNSPECIFIED Status: Chronic Comment: likely sec to hep C/?hypersplenism (11) Immunocompromised Code(s): D84.9 - IMMUNODEFICIENCY, UNSPECIFIED Status: Acute Comment: on cellcept and prednisone (12) Sepsis Code(s): A41.9 - SEPSIS, UNSPECIFIED ORGANISM Status: Suspected Qualifiers: Sepsis type: sepsis due to unspecified organism Qualified Code(s): A41.9 - Sepsis, unspecified organism - Plan has hemolytic anemia, peripheral smear results noted -: d/w , likely has TTP/vasculitis, need to transfer for plasmaphare -: renal function, platelet count and Hct is worsening -: d/w pt and his -: transfer center has been activated * . Is currently on steroids, cefipime and vanc. Review of Systems - Medications/Allergies Allergies/Adverse Reactions: Allergies Allergy/AdvReac Type Severity Reaction Status Date / Time No Known Drug Allergies Allergy Verified 05/24/18 04:55 Medications: Current Medications Acetaminophen (Tylenol) 650 mg PO Q4H PRN PRN Reason: Headache/Fever or Pain Acetaminophen (Tylenol) 650 mg ME Q4H PRN PRN Reason: Headache/Fever or Pain Hydrocodone Bitart/Acetaminophen ([place] 5/325) 1 tab PO Q4H PRN PRN Reason: Moderate Pain (4-6) Hydrocodone Bitart/Acetaminophen ([place] 5/325) 2 tab PO Q4H PRN PRN Reason: Severe Pain (7-10) Last Admin: 05/26/18 08:34 Dose: 2 tab Albuterol Sulfate (Ventolin) 2.5 mg NEB Q2H PRN PRN Reason: Wheezing Albuterol/Ipratropium (Duoneb) 3 ml NEB [id number] GIANLUCA Last Admin: 05/26/18 14:42 Dose: 3 ml Famotidine (Pepcid) 20 mg PO 0900 GIANLUCA Cefepime HCl 1 gm/ Sodium (Chloride) 100 mls @ 200 mls/hr IVPB Q24HR [facility] Last Admin: 05/26/18 08:22 Dose: 100 mls Vancomycin HCl 1 gm/ Device 200 mls @ 200 mls/hr IVPB 1000 [facility] Last Admin: 05/26/18 10:46 Dose: 200 mls Methylprednisolone Sodium Succinate (Solu-Medrol) 20 mg IVP Q6HR [facility] Last Admin: 05/26/18 11:51 Dose: 20 mg Miscellaneous Medication (Pharmacy To Dose) 1 each IVPB PRN PRN PRN Reason: Pharmacy to dose Pantoprazole Sodium (Protonix) 40 mg IVP Q12HR [facility] Last Admin: 05/26/18 08:23 Dose: 40 mg Sodium Bicarbonate (Bicarbonate, Sodium) 325 mg PO TID [facility] Sodium Chloride (Flush - Normal Saline) 10 ml IVF Q12HR [facility] Last Admin: 05/26/18 08:24 Dose: 10 ml Sodium Chloride (Flush - Normal Saline) 10 ml IVF PRN PRN PRN Reason: Saline Flush
[2018-05-26] MEDS ORDERED: Sodium Bicarbonate Tab 325 MG TAB PO SCH (15:00)
--- NOTE | 2018-05-26 15:36 | PRG ---
DATE OF SERVICE: 05/26/2018 SUBJECTIVE: Less dyspnea, no cough, some abdominal distention. Same stiffness of his joints and ski n as noted previously. PHYSICAL EXAMINATION: VITAL SIGNS: T-max 98.0, blood pressure 150/89, pulse 105, respirations 20. GENERAL APPEARANCE: He appears chronically ill. HEENT: Ocular movements are conjugate. Oral cavity normal. NECK: Supple. LUNGS: With symmetric air entry. HEART: S1, S2, regular rate. ABDOMEN: Soft with mild distention. MUSCULOSKELETAL: No joint inflammatory activity oriented. LABORATORY DATA AND IMAGING DATA: White cell count 13.2, hemoglobin 10.9 with MCV 95, platelet count 15,000, 49% neutrophils, 22% bands, 7% metamyelocytes, 3% myelocytes, 12% nucleated RBCs and patient also has moderate schistocytes noted. Cryptococcus antigen is negative. Stool culture final result s are pending. Abdominal ultrasound with normal examination. ASSESSMENT AND PLAN: 1. History of scleroderma and Raynaud's, chronic smoking. 2. New onset of general malaise, dyspnea and leukoerythroblastic response with peripheral blood smea r. Now there is evidence of schistocytes in moderate amounts, which would be consistent with the janet roangiopathic anemia in patients with scleroderma, this could be evidence of impending or progressing renal crisis, which is a development with high degree of progression and poor outcome. Since he is a chronic smoker, possibility of not yet diagnosed malignancy with a paraneoplastic scleroderma needs to be considered as well.
[2018-05-26 15:42] LABS: Bilirubin Negative (Negative); Blood, Urine Large (Negative); Clarity CLOUDY (Clear); Glucose, Urine (Dipstick) Negative (Negative); Leukocyte Negative (Negative); Nitrite Negative (Negative); Protein, Urine (Dipstick) 300 mg/dL (Neg-Trace); Specific Gravity, Urine 1.015 (1.002-1.036); Urobilinogen 0.2 mg/dL (0.2-1.0)
[2018-05-26 15:44] LABS: WBC/HPF 21-50 HPF (0-3)
[2018-05-26 15:46] LABS: Pathc Cast-AUWi Flag 3.63 (0-2.49); Yeast-AUWi Flag 206.1 (0-25.0)
[2018-05-26 15:59] LABS: Creatinine, Urine 39.11 mg/dL (63-166)
--- NOTE | 2018-05-26 16:02 | CON ---
DATE OF CONSULTATION: 05/26/2018 REASON FOR CONSULTATION: Thrombocytopenia. HISTORY OF PRESENT ILLNESS: Mr. Doss is a pleasant 57-year-old gentleman, who was diagnosed in [facility] with Raynaud's disease and scleroderma. He began seeing Dr. Purvis in 02/2018 and was placed on CellCept and prednisone. He also has a history of hepatitis C. Over the last 3 weeks, he began t o have shortness of breath. Shortly thereafter, he began to have early satiety, lack of appetite, an d general malaise. He has lost 20 pounds over the last 3 weeks. He denied any chest pain, headaches , or fevers. No upper respiratory infection symptoms, no abdominal pain, diarrhea, or constipation. He did state that he began to have some numbness and tingling that was intermittent in his toes. He presented to the emergency room on the for evaluation. A chest x-ray showed increased intersti tial densities. A CT angio of the chest and thorax showed diffuse emphysema changes bilaterally. Th ere was no PE. He did have mediastinal and hilar lymphadenopathy, which appear calcified. His CBC s howed a hemoglobin of 6.1. Dr. Goodman saw the patient, he was started on a proton pump inhibitor. He was given 1 unit of packed RBCs. Dr. Murry saw the patient for COPD and patient had a pulmonary func tion test ordered. The patient's white count on arrival was 11.1. His hemoglobin was 6.1, his plate let count was 37,000. Over the course of the last several days, his platelet count has dropped to 15 ,000. He now has myelocytes and metamyelocytes with nucleated RBCs on his smear. There also appears to be a moderate amount of schistocytes. We were asked to see the patient regarding these different ial changes. PAST MEDICAL HISTORY: 1. Scleroderma. 2. Raynaud's syndrome. 3. History of hepatitis C. 4. COPD. 5. Diverticulitis. PAST SURGICAL HISTORY: 1. Colon resection. 2. Appendectomy. ALLERGIES: No known drug allergies. HOME MEDICATIONS: 1. CellCept 500 mg b.i.d. 2. Atarax 25 mg. 3. Nifedipine 30 mg daily. 4. Prednisone 10 mg daily. 5. Spironolactone 50 mg daily. FAMILY HISTORY: Noncontributory. SOCIAL HISTORY: He is , lives with his . He was drink 12 ounces of liquor daily and smok ed 2 packs of cigarettes until August. He now smokes about half a pack a day. No alcohol or illic it drug use. REVIEW OF SYSTEMS: CONSTITUTIONAL: No fever, chills, night sweats. Positive for weight loss. EYES: No blurred or double vision. ENT: No pain, hoarseness, sore throat, or dysphagia. CARDIOVASCULAR: No chest pain, palpitations or syncope. RESPIRATORY: Positive for shortness of breath, dyspnea on exertion, no orthopnea, or hemoptysis. GASTROINTESTINAL: No nausea, vomiting, diarrhea, constipation or abdominal pain. GENITOURINARY: No dysuria or hematuria. MUSCULOSKELETAL: Positive for joint and back pain. SKIN: No rash or pruritus. HEMATOLOGIC: No bleeding, bruising, or clotting. NEUROLOGIC: Positive for weakness and numbness and tingling in his toes. No headache or seizure act ivity. PSYCHIATRIC: No anxiety or depression. PHYSICAL EXAMINATION: VITAL SIGNS: Temperature is 97.8, pulse is 110, respiratory rate 16, BP is 152/89. He is 97% on 2 l iters. GENERAL: Chronically ill-appearing male in no acute distress. HEENT: Normocephalic, atraumatic. Pupils equal and reactive to light. NECK: Supple. HEART: Irregular rate and rhythm. LUNGS: Clear. ABDOMEN: Soft, nontender. There is no organomegaly. EXTREMITIES: No clubbing, cyanosis or edema. SKIN: No rash. HEMATOLOGICAL: There is no petechia or purpura. NEUROLOGICAL: Nonfocal. PSYCHIATRIC: The patient is alert and oriented and appropriate. PERTINENT LABORATORY AND X-RAYS: Current WBCs are 13.2, hemoglobin 7.9, hematocrit 24.1, platelet co unt 15,000, 49% neutrophils, 22% bands, 13% lymphocytes, 7% metamyelocytes, 3% myelocytes, 4% nucleat ed RBCs, moderate amount of schistocytes. PT 17.6, INR is 1.4, PTT 35.7. Sodium is 127, potassium i s 4.6, chloride 99, CO2 is 14, BUN 62, creatinine 1.9, calcium is 8.8, total bilirubin is 2.3, AST is 138, ALT is 25, alkaline phosphatase is 90, serum total protein 8.4, albumin 2.8, globulin 5.6. AFP is negative. Vitamin B12 is 583, folate 16.7. Blood cultures are negative. Radiology per HPI. ASSESSMENT: 1. New onset thrombocytopenia and anemia. 2. Scleroderma on CellCept and prednisone. 3. History of chronic hepatitis C. 4. Abnormal smears with schistocytes, myelocytes, and metamyelocytes. DISCUSSION: Case has been discussed in detail with Dr. Molina. The patient's blood abnormalities a re more pronounced than would be expected on immunosuppressive drugs. Plan is to check an LDH, retic , Ana, and haptoglobin to rule out hemolysis. Avoid platelet transfusion at this time. Dr. Brian pinto will be reviewing the slides personally. If there is a suspicion for TTP, he will need to be rut[place] sferred to a tertiary facility that has plasmapheresis. Thank you for the consult. We will follow him closely.
[2018-05-26 16:07] LABS: Bacteria/HPF 2+ HPF (None Seen); Manual Microscopic Reviewed? No Path Casts Seen; Other Casts/LPF 0-3 FINELY GRAN LPF (0-3 Hyaline); Renal Epithelial None Seen HPF (0-3); Transitional Epithelial NONE SEEN HPF (0-3); Yeast-All Forms None Seen HPF (None Seen)
--- NOTE | 2018-05-26 17:18 | PRG ---
DATE OF SERVICE: 05/26/2018 SUBJECTIVE: Mr. Doss says he is slowly feeling better. I do not find where his spirometry has been done yet. Also, I do not find an echocardiogram report. PHYSICAL EXAMINATION: VITAL SIGNS: His heart rate 82-105, today he is afebrile, respiratory rate 16- 20, oximetry is 97% on 2 liters, blood pressure 152/89. LUNGS: Still remarkable for crackles at lung bases. HEART: Regular rhythm. ABDOMEN: Soft and nontender. EXTREMITIES: Without clubbing, cyanosis or edema. IMPRESSION: 1. Scleroderma. 2. Raynaud's. 3. Hepatitis. 4. Chronic obstructive pulmonary disease. 5. ? scleroderma, interstitial lung disease. 6. Anemia, thrombocytopenia with neutrophilia and a left shift. His left shift improved. His thrombocytopenia has not been improved. It is unlikely he has TTP, but it is still in the differential. In theory, he could have a bone marrow infiltrative process or an infectious process suppressing his bone marrow. A biopsy would be the next step after the peripheral smear was reviewed. With regards to an immunocompromised pulmonary infection, this is in the list of possibilities, but not extremely common in people on CellCept for any autoimmune disease. I do not feel bronchoscopy is indicated at least at this time. He has significant underlying obstructive lung disease. Some of his complaints of dyspnea may simply be related to that. His renal function has deteriorated slightly from creatinine of 1.44 two days ago to 1.9 now. This is, however, in the face of a slightly negative fluid balance, so hydration should be considered. Continue to follow here and /or transfer [facility] with [facility]ology input would not be inappropriate. I will continue to follow with the other physicians caring for him. COLTON
--- NOTE | 2018-05-27 04:18 | DIS ---
DATE OF ADMISSION: 05/23/2018 DATE OF DISCHARGE: 05/26/2018 DISCHARGE DISPOSITION: To [facility] hospital in [place]. PRIMARY DISCHARGE DIAGNOSES: Hemolytic anemia likely either thrombotic thrombocytopenic purpura or v asculitis, acute kidney injury, anemia, severe thrombocytopenia, hyponatremia, history of scleroderma , chronic hepatitis C, coagulopathy, suspected sepsis. PROCEDURES DONE DURING HOSPITALIZATION: The right upper quadrant ultrasound done was normal. There was normal directional flow in the hepatic vessels. The CT angio chest with IV contrast done showed no evidence of pulmonary embolus. There was mediastinal and hilar lymphadenopathy, ground glass opac ities within the lungs bilaterally with what appears to be mild honeycombing in the posterior aspect of the lungs bilaterally. Echo with 2D Doppler showed an EF of 60%-65% with grade 1/3 diastolic dysf unction, no evidence of any pericardial effusion was seen. Blood cultures x2 no growth. Urine cultu re, no growth. Stool occult blood was negative. Cryptococcal antigen in the serum was negative. St ool for Campylobacter antigen was negative. Stool for Shiga toxin 1 and 2 were negative. Initial H&H of 6.1 and 18 with platelet count of 37 on admission. MCV was 99. Discharge H&H 7.[address]let count of 15. Moderate amount of schistocytes were seen on the peripheral smear, retic count w as 20.3. PT/INR 17.6 and 1.4, PTT 35. Initial BUN and creatinine were 45 and 1.3 with serum [place] of 14. Discharge BUN and creatinine is 62 and 1.9 with serum bicarbonate of 14. LDH 3852, albu min is 2.8. Vitamin B12 of 583, folic acid 16.7. AFP tumor marker was 2.0. Serum iron 75, TIBC 209 , ferritin was 1668. BNP 145, total bilirubin was 1.3 on admission with discharge numbers of 2.3. U A showed 11-20 hyaline casts. Urine creatinine was 39.1. Urine random total protein was 532. Urina ry pH was 6.0 with specific gravity of 1.015. DISCHARGE MEDICATIONS: The patient is empirically placed on cefepime and vancomycin due to pancytope manolo, Solu-Medrol 20 mg IV q.6 hourly, DuoNebs q.4 hourly, sodium bicarbonate 325 mg p.o. 3 times thompson y. ALLERGIES: No known drug allergies. DISCHARGE PLAN: The patient is being discharged to Critical access hospital in [place] for possible plasm apheresis for suspected TTP versus vasculitis. BRIEF COURSE DURING HOSPITALIZATION: The patient initially came to ER with complaints of shortness o f breath for nearly 2 weeks or so, which has been gradually worsening. On arrival, had saturations o f 82% on room air and had to be placed on 2 liters nasal cannula. He has had a CT angio chest done i n the ER which showed findings possibly related to scleroderma lung disease. Here, patient was given 2 units of packed cells for his hemoglobin of 6 grams on arrival. He has had iron studies done whic h showed a ferritin of 1668. The patient had initial acute kidney injury, but this got worse to the point that his creatinine started to rise up to 1.90. Please note patient has had IV contrast for a CT angio on the day of admission. As patient progressively declined with his blood work and thromboc ytopenia getting worse with numbers dropping down to 15. The peripheral smear was done which showed moderate schistocytes. With his acute kidney injury, history of scleroderma, pancytopenia with sever e hemolysis, a decision was made to transfer him to higher level of care for possible plasmapheresis with impending TTP/vasculitis. The patient also carries a diagnosis of chronic hepatitis C. Prior t o arrival here, he was on CellCept and prednisone. He has been accepted to Critical access [facility] in [facility] and will be shortly discharged once a bed becomes available. I have given complete updates to patient and his , Ms. Lopez regarding the transfer.
[2018-05-27] MEDS ORDERED: Famotidine 20 MG TAB PO SCH (09:00)
--- NOTE | 2018-05-27 09:13 | PFT ---
PATIENT HISTORY: HEIGHT: 67 WEIGHT:135 SMOKER: YES HOW LON YRS PACKS PER DAY:2 PRODUCTIVE COUGH: NO LUNG DISEASE: PHYSICIAN INTERPRETATION FINAL REPORT: [employer] comments: The patient has good effort and cooperation FVC 3.21 (73%), FEV1 2.03 (61%), FEV1/FVC 0.63. There is a reduction to both the FEV1 and the FVC. This is consistent with obstructive airflow limitation based on the ratio. There is no significant improvement following bronchodilator. The expiratory limb of the flow volume loop is consistent with obstructive airflow limitation. The inspiratory limb is essentially normal. IMPRESSION: Overall, these pulmonary function studies are most consistent with moderate obstructive lung disease with no significant evidence of reversibility. Clinical correlation is recommended, given that this is an inpatient study. [employer] And Breakfast Innkeeper: UZMA Schedule Announcer: UZMA SEGURA
[2018-05-27 11:53] LABS: Reference Lab Name LABCORP
[2018-05-27 11:54] LABS: Ref Lab Test Ordered ADAMTS ACTIVITY
[2018-05-28 13:18] LABS: CMV DNA-PCR Test Negative (Negative)
== END 2018-05-26 18:09 | disposition short-term general hospital (02) | DRG 545 ==
LOC: ERS 20:22 → IMCU/EMU 05-24 00:30 → T4-B 05-25 20:42
PROVIDERS: ADMIT Internal Medicine Infectious Disease; ATTEND Internal Medicine Infectious Disease
PROC: 30233N1 Transfusion of Nonautologous Red Blood Cells into Peripheral Vein, Percutaneous Approach (ICD-10-PCS; principal; 2018-05-24)
DX: M31.1 Thrombotic microangiopathy (principal); A41.9 Sepsis, unspecified organism; N17.9 Acute kidney failure, unspecified; E87.1 Hypo-osmolality and hyponatremia; J44.1 Chronic obstructive pulmonary disease with (acute) exacerbation; D84.9 Immunodeficiency, unspecified; E87.2 Acidosis; D61.818 Other pancytopenia; M34.81 Systemic sclerosis with lung involvement; I77.6 Arteritis, unspecified; B19.20 Unspecified viral hepatitis C without hepatic coma; D69.6 Thrombocytopenia, unspecified; I73.00 Raynaud's syndrome without gangrene; R59.1 Generalized enlarged lymph nodes; D53.9 Nutritional anemia, unspecified
CPT/HCPCS: 36415; 36430; 71045; 71275; 76705; 80048; 80053; 81001; 82105; 82274; 82553; 82570; 82607; 82728; 82746; 83010; 83540; 83550; 83615; 83880; 84156; 84484; 85025; 85046; 85060; 85610; 85730; 86850; 86880; 86900; 86901; 87040; 87045; 87046; 87086; 87385; 87449; 87497; 87899; 93005; 93306; 94060; 94640; 94727; 96361; 96365; 96375; 99406; A4216; C9113; J0692; J1956; J2270; J2405; J2920; J2930; J3370; J7050; J7611; J7620; P9016

== ENCOUNTER 2018-07-21 16:54 | Inpatient (IN) | payer OTHER, SELFPAY ==
[~2018-07-21 16:54] MED LIST changes: +Atropine Sulfate 1 mg/10 ml Syringe ONE; +Calcium Chloride 1 GM/10 ML Abboject SYRINGE ONE; +EPINEPHrine 1 MG/10 ML Abboject SYRINGE ONE; +Sodium Bicarb 50 MEQ/50 ML Abboject 8.4% SYRINGE ONE
[2018-07-21 18:14] LABS: Hemoglobin 5.4 g/dL (14.0-18.0); Mean Corpuscular HGB CONC 30.5 g/dL (32.0-36.0); Mean Corpuscular Volume 91.7 fL (78.0-98.0); Mean Platelet Volume 6.2 fL (7.4-10.4); Platelet Count 103 thou/uL (130-400); Red Blood Cell (RBC) Count 1.93 mill/uL (4.70-6.10); White Blood Cell (WBC) Count 6.2 thou/uL (4.8-10.8)
[2018-07-21 18:16] LABS: INR-International Normal Ratio 1.9; Prothrombin Time 21.5 SEC (12.0-14.7)
[2018-07-21 18:40] LABS: Band 39 % (5-11); Hypochromia MODERATE=16-30 cells (100X) (0-5/hpf); Lymphocytes 7 % (21-51); MDiff Complete? YES; Metamyelocyte 1 % (0-0); Monocytes 3 % (0-10); Neutrophil 50 % (42-75); Reflex for Review?? NO
[2018-07-21 19:06] LABS: ALT (SGPT) 296 U/L (8-55); AST (SGOT) 912 U/L (5-34); Albumin 3.2 g/dL (3.5-5.0); Alkaline Phosphatase 90 U/L (40-150); BUN (Urea Nitrogen) 14 mg/dL (8.4-25.7); Bilirubin, Total 0.7 mg/dL (0.2-1.2); Calc. Creatinine Clearance 0 mL/min (70-130); Calcium 8.5 mg/dL (7.8-10.44); Carbon Dioxide 24 mmol/L (22-29); Chloride 95 mmol/L (98-107); Estimated GFR-MDRD 29; Potassium 3.7 mmol/L (3.5-5.1); Protein, Total 7.2 g/dL (6.0-8.3); Sodium 136 mmol/L (136-145)
--- NOTE | 2018-07-21 19:27 | RAD ---
PORTABLE AP CHEST X-RAY 07/21/18 HISTORY: Syncopal episode at dialysis. Infected port. COMPARISON: 05/23/18. FINDINGS: A tunneled right internal jugular vein hemodialysis catheter is noted in place with tip overlying the distal SVC. The cardiac silhouette is mildly enlarged. There is increased interstitial opacities wit hin the lungs bilaterally, greater at each lung base which were also present on the prior study and p robably related to chronic interstitial lung changes. There is emphysematous changes in the upper shawna g zones. Slightly greater patchy density is seen at the right lung base which is likely related to vazquez perimposition of structures including the interstitial opacities. However, superimposed pneumonia at the right lung base could not be entirely excluded. No other interval change. IMPRESSION: 1. Findings likely attributable to chronic interstitial lung changes. Patchy density at the righ t lung base could be related to either atelectasis or focal area of pneumonitis. Followup to resoluti on is recommended. 2. Mild cardiomegaly. 3. Evidence of COPD. POS: [facility]
[2018-07-21 19:43] LABS: Glucose 40 mg/dL (70-105)
[2018-07-21 19:44] LABS: Anion Gap 21 mmol/L (10-20)
[2018-07-21] MEDS ORDERED: Piperacillin/Tazobactam 3.375 GM VIAL ONE (20:18)
[2018-07-21] MEDS ORDERED: predniSONE 20 MG TAB ONE (20:48)
[2018-07-21] MEDS ORDERED: KETAMINE 100 MG/ML (5ML VIAL) ONE (20:58)
[2018-07-21] MEDS ORDERED: Norepinephrine 8 MG/0.9% NS 250 ML ONE (21:01)
[2018-07-21] MEDS ORDERED: Ventilator Sedation Protocol 1 EACH FS ONE (21:18)
[2018-07-21] MEDS ORDERED: Dextrose 5% in Water 1,000 ML IV PRN (21:25)
[2018-07-21] MEDS ORDERED: HumaLOG 300 UNITS/3 ML VIAL SC PRN (21:25)
[2018-07-21] MEDS ORDERED: Fentanyl BOLUS 250 ML IVPB PRN (21:59)
[2018-07-21] MEDS ORDERED: Propofol 1,000 MG/100 ML VIAL IV PRN (21:59)
[2018-07-21] MEDS ORDERED: DISCONTINUE PREVIOUS NARCOTIC PAIN MEDICATIONS AND BENZODIAZEPINES FS SCH (21:59)
[2018-07-21] MEDS ORDERED: Propofol BOLUS 1,000 MG/100 ML VIAL IV PRN (21:59)
[2018-07-21] MEDS ORDERED: Lorazepam 2 MG/ML VIAL SLOW IVP PRN (21:59)
[2018-07-21] MEDS ORDERED: fentaNYL Citrate/PF 2,000 MCG in Sodium Chloride 0.9% 60 ML IV SCH (21:59)
--- NOTE | 2018-07-21 21:59 | PDOC.EVN ---
Event Note - Event Note Event Note: h&p dictated #[id number]
[2018-07-21] MEDS ORDERED: EPINEPHrine 1 MG, Admixture Fee 1 EACH in Dextrose 5% in Water 250 ML IVPB SCH (22:00)
--- NOTE | 2018-07-21 22:00 | RAD ---
PORTABLE AP CHEST X-RAY: 07/21/18 HISTORY: Post intubation. COMPARISON: 07/21/18 FINDINGS: Tunneled right internal jugular vein hemodialysis catheter remains in place. There has been interval placement of an endotracheal tube with tip overlying T4 vertebral body and well above the level of th e matthew. Pacing pads overlie the right upper chest and left lower chest/upper abdomen. The cardiac s ilhouette remains enlarged. Diffuse increased interstitial opacities are seen within the lungs. IMPRESSION: Interval placement of an endotracheal tube. Chest is otherwise stable. POS: [facility]
[2018-07-21] MEDS ORDERED: EPINEPHrine 4 MG, Admixture Fee 1 EACH in Dextrose 5% in Water 250 ML IVPB SCH (22:15)
--- NOTE | 2018-07-21 22:33 | PDOC.EVN ---
Event Note - Event Note Event Note: Pt currently requiring 2 pressors, is intubated, 2u pRBCs are going in, approximately 2.5-3L IVF total volume since presentation to ER D/W pt'swife - pt extremely poor prognosis. High likelihood of having another cardiopulmonary arrest and high likelihood of not surviving a subsequent cardiopulmonary arrest. Patient's acknowledges the severity of his disease , his multi-organ failure, and general poor short term prognosis. At this point in time, she would like for him to remain full code as she is calling family members. She requests to be at bedside as much as reasonably doable. Greater than 30 minutes spent discussing prognosis, acuity of illness, explaining current management plan to patient's family () at bedside. Also re-discussed with ER - Dr. Bowman.
[2018-07-21 22:38] LABS: Actual Bicarbonate (HCO3a) 14.3 mEq/L (22-28); Analyzer IN Cardio ER; Base Excess (BEa) -16.1 mEq/L (-2.0 to +3.0); Calcium, Ionized 1.03 mmol/L (1.12-1.30); Carboxyhemoglobin (COHb) 0.4 gm% (0.0-3.0); Hemoglobin (Hb) 6.5 g/dL (14.0-18.0); O2 Tension (PaO2) 89.4 mmHg (80.0-100.0); Potassium - ABG Lab 3.59 mmol/L (3.70-5.30)
[2018-07-21 23:09] LABS: ALT (SGPT) 395 U/L (8-55); AST (SGOT) 1138 U/L (5-34); Albumin 2.4 g/dL (3.5-5.0); Alkaline Phosphatase 89 U/L (40-150); Anion Gap 31 mmol/L (10-20); BUN (Urea Nitrogen) 16 mg/dL (8.4-25.7); Bilirubin, Total 0.7 mg/dL (0.2-1.2); Calc. Creatinine Clearance 0 mL/min (70-130); Calcium 7.8 mg/dL (7.8-10.44); Carbon Dioxide 15 mmol/L (22-29); Chloride 97 mmol/L (98-107); Estimated GFR-MDRD 27; Glucose 90 mg/dL (70-105); Potassium 3.8 mmol/L (3.5-5.1); Protein, Total 5.4 g/dL (6.0-8.3); Sodium 139 mmol/L (136-145)
[2018-07-21 23:17] LABS: Troponin I 0.518 ng/mL (< 0.028)
--- NOTE | 2018-07-21 23:22 | CT ---
NONCONTRAST CT HEAD: 07/21/18 HISTORY: Altered mental status. Syncopal episode. COMPARISON: None available. FINDINGS: There is no evidence of a hemorrhage, acute infarction, mass effect, or midline shift. The ventricula r system is normal in size, shape and position. No calvarial fracture is seen. The visualized paranas al sinuses and mastoid air cells are clear. There is subcutaneous soft tissue swelling seen adjacent to the right orbit and zygomatic bone. IMPRESSION: 1. No acute intracranial abnormalities demonstrated. 2. Subcutaneous soft tissue swelling adjacent to the right zygomatic bone and lateral to the rig ht orbit. POS: [facility]
--- NOTE | 2018-07-21 23:31 | HP ---
PRIMARY CARE PHYSICIAN: [facility]. CHIEF COMPLAINT: Syncope. HISTORY OF PRESENT ILLNESS: A 57-year-old male with a known history of end- stage renal disease, hepatitis C, COPD, scleroderma, who presented after describes syncopal episode during hemodialysis. Please note at the time of my evaluation, the patient is intubated, unable to provide any history. It appears that while in the emergency department, he had an acute decline of his respiratory status and was emergently intubated for hypoxia and respiratory failure. His was previously at bedside, but is currently no longer available having gone home for the evening. Upon presentation, he was noted to have significant anemia of 5.4 and significant hypoglycemia along with elevated lactate and transaminitis. REVIEW OF SYSTEMS: Unable to obtain directly from the patient, unfortunately. PAST MEDICAL HISTORY: As per above. 1. Prior history of scleroderma with Raynaud's. 2. Hepatitis C. 3. COPD. 4. Diverticulitis. 5. Colonic resection. 6. History of appendectomy. 7. History of thrombocytopenia with a question of either TTP versus vasculitis for which he was previously sent from our facility to [facility] in [place] for plasmapheresis. Currently, unable to determine the outcome of that transfer. 8. End-stage renal disease with subclavian hemodialysis catheter. FAMILY HISTORY: Per prior records is negative for immune disorders, autoimmune disorders, hematological disorders. SOCIAL HISTORY: Unable to obtain from the patient, but prior records indicate no alcohol or illicit drug use. Does indicate he has a significant half pack per day tobacco history. HOME MEDICATIONS: The patient does not have home medication list reported in the EMR. This will need to be obtained from the patient's pharmacies, which are at [facility] pharmacy as the patient himself is unable to provide this. From his prior admission, his chronic home medications appear to include CellCept, prednisone, hydroxyzine, spironolactone, nifedipine, but again this will need to be reconfirmed. ALLERGIES: No known drug allergies. PHYSICAL EXAMINATION: GENERAL: The patient is intubated, lying in the emergency room stretcher, grossly noncommunicative, having received lytic agents for including rocuronium for intubation. HEENT: Grossly normocephalic, atraumatic. CARDIOVASCULAR: S1, S2. No overt murmurs, rubs or gallops. Pulses 2+ bilateral upper extremities. RESPIRATORY: Limited anterior examination, marginal air movement. Coarse breath sounds bilaterally. No overt wheezes, rales or rhonchi. Limited anterior examination as noted above. ABDOMEN: Positive bowel sounds, somewhat decreased, soft, nontense, nonrigid. MUSCULOSKELETAL: The patient currently paralyzed. LABORATORY DATA AND IMAGING: WBC 6.2, hemoglobin 5.4, hematocrit of 17.7, platelets 103. PT 21.5, INR 1.9. Sodium 136, potassium 3.7, chloride 95, bicarbonate 24, BUN 14, creatinine 2.34, glucose 40, lactic acid 8.9, calcium 8.5, total protein 0.7, AST 912, ALT 296, alkaline phosphatase 90, total protein 7.2, albumin 3.2, globulin 4.0. Chest x-ray on presentation, impression , "findings likely attributed to chronic interstitial lung changes. Patchy density at the right lung base could be related to either atelectasis or focal area of pneumonitis. Followup to resolution is recommended. Mild cardiomegaly. Evidence of chronic obstructive pulmonary disease." Images reviewed by myself and I agree. ASSESSMENT AND PLAN: A 57-year-old male with history of end-stage renal disease , scleroderma, chronic obstructive pulmonary disease, hepatitis C, who presents with initial chief complaint of syncope during hemodialysis x1, syncope likely multifactorial. Please see the discussion that will follow below. The patient certainly is meet criteria for sepsis with a possible source of infected subclavian. The patient also currently in acute respiratory failure and a component of hepatitis as well during this hospitalization. 1. Sepsis, suspected site is the infected subclavian hemodialysis catheter. I appreciate Nephrology consultation. I appreciate surgical consultation. The patient to be started on empiric vancomycin, piperacillin, tazobactam. Pending cultures drawn peripherally. Antibiotics will be renally dosed by pharmacy. The patient is indeed and end-stage renal disease patient. 2. Acute respiratory failure. The patient has multiple potential factors including underlying chronic obstructive pulmonary disease in conjunction with his scleroderma is unclear to me right now how much of his respiratory issues are component of both plus in the setting of sepsis. The patient has been intubated for acute respiratory failure while in the emergency department. Post -intubation central access was also obtained femorally. The patient will be started on nebulizers, methylprednisolone with sliding scale insulin as needed and empiric coverage with Levaquin in addition to his other antibiotic regimen to broaden his coverage in a patient who may have a component of chronic immunosuppression on CellCept and prednisone. I do not appreciate pulmonary consultation. I have discussed this case with Dr. Win. 3. Hepatitis with elevated transaminitis. The patient also has an elevated lactic acid. Unclear how much component of the hepatitis involves acute parenchymal injury. INR is 1.9 at this point in time. The patient with chronic hepatitis C, but from prior records does not appear to have had any further development of hepatic disease chronic or outpatient basis. Of note, he was on during his last hospitalization noted to have a concern for TTP versus vasculitis with thrombocytopenia that was significantly lower compared to today's presentation. The case has also been discussed with Gastroenterology , Dr. Rae who will consult on the case. Obtain an ultrasound of the abdomen as well and recheck a CMP in the morning. 4. Hypoglycemia, suspect is likely secondary to the sepsis as noted above. The patient has been receiving fluids in the emergency department along with glucose as needed in the form of D5W and D50. Repeat Accu-Chek demonstrates a glucose of 112. We will continue to monitor this closely. The patient without any known history of diabetes. The patient will be placed on the hyperglycemia protocol which also includes a hypoglycemia component. 5. End-stage renal disease, please note as above. We will need to be cautious regarding his fluid administration as the patient does need IV fluid for his sepsis; however, given his renal disease, has a limited capacity to tolerate large boluses. 6. Cardiopulmonary arrest and the CPR. During this dictation patient also had what appears to be a pulseless electrical activity arrest while in the emergency department. He received epinephrine, CPR compressions. This is post- intubation post-IV line access. He has also been given a second liter of IV fluid and bolus. He is currently receiving a blood transfusion as well post CPR. He was able to have a return of spontaneous circulation at the end of the code. Please see the code record for full results. The code was run while the patient was in the emergency department and under the supervision of the emergency department physician. 7. General poor prognosis. This was discussed earlier in the emergency department with the patient's at bedside who indicates she wishes for the patient to be FULL CODE at this point in time. She is the medical decision maker for the patient as he is currently unable to make his own medical decisions. 8. Anemia with a hemoglobin of 5.4 without any overt evidence of loss at this point in time. See discussion in regards to prior history of anemia with thrombocytopenia that required plasmapheresis. We will go ahead and check for the possibility of hemolytic process. However, the patient currently is also receiving a blood transfusion at this point in time. Serial H&H as well. 9. Activity: Bed rest. 10. Diet: N.p.o. 11. Deep venous thrombosis prophylaxis: Sequentials. Greater than 70 minutes of critical care time spent with the patient during this admission. RHODAD
[2018-07-21 23:58] LABS: Anisocytosis SLIGHT = 6-15 cells (100X) (0-5/hpf); Band 32 % (5-11); Hemoglobin 6.3 g/dL (14.0-18.0); Lymphocytes 17 % (21-51); MDiff Complete? YES; Mean Corpuscular HGB CONC 29.7 g/dL (32.0-36.0); Mean Corpuscular Hemoglobin 28.3 pg (27.0-31.0); Mean Corpuscular Volume 95.1 fL (78.0-98.0); Mean Platelet Volume 6.7 fL (7.4-10.4); Metamyelocyte 1 % (0-0); Monocytes 5 % (0-10); Myelocyte 1 % (0-0); Neutrophil 44 % (42-75); PLT Morphology Comment Appears Decreased; Platelet Count 72 thou/uL (130-400); Red Blood Cell (RBC) Count 2.23 mill/uL (4.70-6.10); White Blood Cell (WBC) Count 4.2 thou/uL (4.8-10.8)
--- NOTE | 2018-07-22 00:06 | CT ---
CT CHEST WITH IV CONTRAST CT ABDOMEN AND PELVIS WITH IV CONTRAST 07/21/18 HISTORY: Sepsis. Altered mental status. History of scleroderma and hepatitis. COPD and emphysema. COMPARISON: CTA chest on 05/23/18. FINDINGS: CT THORAX: Diffuse emphysematous changes are again seen throughout the lungs bilaterally with chronic interstiti al lung changes as well. However, there has been interval development of small right and moderate siz ed left pleural effusions. There is bibasilar areas of consolidation much greater on the right, worri some for bibasilar pneumonia and possibly atypical pneumonia. Patchy parenchymal changes are also see n within the right upper lobe. These findings were not present on the prior exam. Again noted is cardiomegaly. There is a small pericardial effusion which has developed in the interim . Endotracheal tube is noted in place above the level of the matthew. Nasogastric tube is now in place w ith the tip terminating in the distal esophagus. The nasogastric tube should be advanced. There are calcifications seen at each lung base which may be related to calcified granulomata. Again noted are increase in number as well as enlarged mediastinal lymph nodes as well as left hilar lymph nodes. Bulky lymphadenopathy in the right hilar region has improved with large subcarinal lymph node also improved in size from prior exam. There is mild subcutaneous edema. CT ABDOMEN AND PELVIS: There is heterogeneous appearance of the liver with periportal edema. The IVC is distended. These fin dings may be attributable to right heart dysfunction. There is suggestion of diminished attenuation involving the distal body and tail of the pancreas, but there is artifact from overlying pacing pad which may give this appearance. However, dilatation of t he pancreatic duct in this region cannot be entirely excluded. The kidneys demonstrate diminished enhancement bilaterally with only small areas of enhancement prese nt. Findings may be related to bilateral renal infarctions and possibly nonfunctioning kidneys given patient's right internal jugular vein hemodialysis catheter in place which does terminate in the dist al SVC. The spleen and bilateral adrenal glands demonstrate a normal CT appearance. Vascular calcifications are seen in the abdominal aorta involving the iliac arteries. The urinary bladder is incompletely distended. There are postsurgical changes in the region of the sigmoid colon. A few colonic diverticula are seen . There is gallbladder wall thickening/edema. There are dilated fluid filled loops of small bowel prominently involving the proximal loops of small bowel measuring up to 2.5 cm. More distal small bowel loops are normal in caliber. No discrete trans ition point is identified on this exam. Small fat containing umbilical hernia is noted. There is a small amount of ascites seen prominently adjacent to the liver and spleen and in the pelvi s. Mild mesenteric edema is noted. Mild degenerative changes are seen in the spine. There is subcutaneous edema noted. Left subclavian central venous catheter is noted in place with the tip terminating in the left exter nal iliac vein. IMPRESSION: 1. Interval development of bilateral areas of consolidation predominantly at each lung base and with patchy areas of consolidation in the right upper lobe. Findings are worrisome for atypical pneum onia. 2. Interval development of moderate left and small right pleural effusions. 3. Cardiomegaly with interval development of pericardial effusion. 4. Heterogeneous appearance of the liver with distention of the IVC, and findings are probably r elated to right heart decompensation. 5. Decreased enhancement of the bilateral kidneys. This is likely related to nonfunctioning bila teral kidneys and could be related to bilateral renal infarctions. Patient is noted to be on dialysis with right internal jugular vein hemodialysis catheter in place. 6. Suggested low attenuation area within the distal body and tail of the pancreas. This could po tentially be artifactual, and there is overlying pacing pad resulting in streak artifact precluding a dequate evaluation. 7. Dilated fluid filled loops of small bowel which is nonspecific. This could be related to ileu s or developing partial small bowel obstruction. 8. Gallbladder wall edema which is nonspecific. This can be seen in patient's with cholecystitis in the correct clinical scenario, hypoproteinemia, liver disease, versus other etiologies. 9. Small amount of intraperitoneal free fluid with findings suggesting anasarca. 10. Lines and tubes in place as described above. 11. Mediastinal and left hilar lymphadenopathy. This was seen on prior study on 05/23/18. The deg ree of lymphadenopathy in the hilar regions and subcarinal region has improved. POS: [facility]
[2018-07-22] MEDS ORDERED: Norepinephrine 8 MG/250 ML BAG IVPB PRN (00:54)
[2018-07-22] MEDS ORDERED: Sodium Chloride 0.9% 1,000 ML IV SCH (01:00)
[2018-07-22 01:03] LABS: pH, Arterial 6.97 (7.35-7.45)
[2018-07-22 01:04] LABS: CO2 Tension 63.6 mmHg (35.0-45.0); Puncture Site LBA
[2018-07-22 01:10] LABS: Actual Bicarbonate (HCO3a) 16.2 mEq/L (22-28); Base Excess (BEa) -11.7 mEq/L (-2.0 to +3.0); Carboxyhemoglobin (COHb) 1.6 gm% (0.0-3.0); Hemoglobin (Hb) 7.3 g/dL (14.0-18.0); O2 Tension (PaO2) 99.6 mmHg (80.0-100.0)
[2018-07-22] MEDS ORDERED: Dextrose 5 %-0.45 % NaCl 1,000 ML IV SCH (02:00)
[2018-07-22 03:08] LABS: Puncture Site RRAD; pH, Arterial 7.16 (7.35-7.45)
[2018-07-22 03:52] LABS: Lactic Acid 15.5 mmol/L (0.5-2.2)
[2018-07-22 03:58] LABS: Magnesium 1.7 mg/dL (1.6-2.6); Phosphorus 5.8 mg/dL (2.3-4.7)
--- NOTE | 2018-07-22 04:08 | PDOC.EVN ---
Event Note - Event Note Event Note: pt seen again for persistent hypoxia despite FiO2 @100% repeat CXR demonstrating increased pulm edema (no notable ptx) by my read hold IVF (previously D5 1/2 NS @75cc/hr) d/w Dr. Win current status and CXR plan for change to bilevel continue to closely monitor patient's prognosis remains poor d/w pt's bedside nsg greater than 30 minutes spent on critical care for this change in pt status
[2018-07-22] MEDS: Dextrose 50% Abboject 50 ML SYRINGE SLOW IVP PRN ×2 (04:38→05:54)
[2018-07-22 05:11] LABS: ALT (SGPT) 753 U/L (8-55); AST (SGOT) 2313 U/L (5-34); Albumin 2.7 g/dL (3.5-5.0); Alkaline Phosphatase 105 U/L (40-150); Anion Gap 28 mmol/L (10-20); BUN (Urea Nitrogen) 16 mg/dL (8.4-25.7); Bilirubin, Total 1.3 mg/dL (0.2-1.2); Calc. Creatinine Clearance 31 mL/min (70-130); Calcium 7.9 mg/dL (7.8-10.44); Carbon Dioxide 17 mmol/L (22-29); Chloride 97 mmol/L (98-107); Estimated GFR-MDRD 26; Globulin 3.3 g/dL (2.4-3.5); Glucose 94 mg/dL (70-105); Potassium 3.7 mmol/L (3.5-5.1); Sodium 138 mmol/L (136-145)
[2018-07-22] MEDS ORDERED: Famotidine/PF 20 mg/2ml Vial SLOW IVP SCH (09:00)
[2018-07-22] MEDS ORDERED: Heparin 5,000 UNITS/ML VIAL SC SCH (09:00)
[2018-07-22] MEDS ORDERED: Lorazepam 2 MG/ML VIAL SLOW IVP PRN (09:04)
[2018-07-22 09:23] VITALS: TEMP 97.7
--- NOTE | 2018-07-22 10:26 | ULT ---
ABDOMINAL ULTRASOUND: HISTORY: Elevated LFTs. End stage renal disease. Hepatitis C. FINDINGS: Real-time imaging of the upper abdomen shows some fairly minimal ascites to be present. The gallblad lucrecia is somewhat contracted, and the gallbladder wall is thickened. I do not see any definite signs o f gallstones. Changes could be on the basis of cholecystitis but could also be related to liver dise ase. The visualized liver parenchyma shows no focal abnormalities and it measures 20 cm in length. The spleen measures 9.5 cm. The right and left kidneys are within normal limits in size and not obstructed. The pancreas is obscured. Portions of the abdominal aorta and IVC are also obscured. IMPRESSION: 1. Minimal ascites. 2. Contracted gallbladder with marked gallbladder wall thickening without definite signs of gallston es. This could be on the basis of gallbladder disease but also could be an indication of hepatic dys function. Clinical correlation is suggested. 3. Small right pleural effusion also noted. POS: [facility]
--- NOTE | 2018-07-22 10:50 | CON ---
DATE OF CONSULTATION: 07/22/2018 SERVICE: Pulmonary Medicine. REASON FOR CONSULTATION: Respiratory failure. HISTORY OF PRESENT ILLNESS: The patient is a 57-year-old white male with past medical history significant for severe systemic sclerosis as well as end-stage renal disease. He was on dialysis when he became unresponsive. He was subsequently brought to the emergency department. He had hypoxemia and was subsequently intubated. At some point, he did lose pulse. He got 4 minutes of chest compressions. Ultimately, his pulse was reestablished. He got a couple liters of fluid in resuscitation. That being said, neurologically, he never returned to normal function. He cannot provide any additional elements of the history. Overnight, he had increasing hypoxemia. IV fluids were interrupted. We switched him over to bilevel. Slowly, his saturations are actually improved. PAST MEDICAL HISTORY: 1. Scleroderma. 2. Hepatitis C. 3. Chronic obstructive pulmonary disease. 4. Diverticulitis. 5. Possible thrombocytopenic purpura. 6. End-stage renal disease. PAST SURGICAL HISTORY: 1. Appendectomy. 2. Colon resection. 3. Subclavian hemodialysis catheter placement. FAMILY HISTORY: Noncontributory. SOCIAL HISTORY: Records indicate that there is no alcohol or illicit drug use. He smokes a pack of cigarettes on a daily basis. ALLERGIES: No known drug allergies. MEDICATIONS: List of his inpatient medications were reviewed. Multiple updates were made. REVIEW OF SYSTEMS: Cannot be obtained as the patient is currently comatose. LABORATORY DATA: WBC 4.1, hemoglobin 7.0, platelets 72,000. Band count 32%. INR 1.9. PH 7.16, pCO2 47, pO2 99. He was on SIMV at 100% at that time. Creatinine 2.6. Basic metabolic profile is otherwise unremarkable except for an anion gap of 28. Glucose 95, lactate 15, and very slow to trend downward. AST and ALT are trending upward. IMAGIN. CT of the chest, abdomen, and pelvis demonstrates bilateral consolidation at each lung base and consolidation of the right upper lobe. Moderate left and small right pleural effusions. Cardiomegaly with pericardial effusion. Distention of the inferior vena cava, dilated loops of bowel. Gallbladder wall edema without evidence of distended common bile duct. 2. CT of the brain demonstrates no significant intracranial abnormalities. There is some soft tissue swelling adjacent to the right zygomatic bone. ASSESSMENT: 1. Acute hypoxic and hypercapnic respiratory failure. 2. PEA arrest. 3. Septic shock. 4. Systemic sclerosis. 5. End-stage renal disease. 6. Anoxic brain injury. DISCUSSION AND PLAN: Neurologically, the patient has suffered a devastating setback. We talked to the family about how to proceed moving forward. Ultimately, they suggest that he would never want to live in a permanently debilitated state. They do not like looking at him in this way and requesting that we transition over to comfort care only. I suggested that we could give it a day or two in order to see whether or not there was something that we could fix. Furthermore, he is overbreathing the ventilator and he is technically not brain . That being said, he has suffered a severe injury to the brainstem. They understand that metabolic processes could be at play here, and injury to the brain stem can sometimes improve over a couple of days. That being said, they are suggesting at baseline, he was suffering on a day by day basis and he was ready to be passing away. As such, we proceed with compassionate extubation. If he continues to breathe on, he will be transitioned to the floor. Critical care time: 30 minutes. COLTON
--- NOTE | 2018-07-22 10:56 | RAD ---
PRELIMINARY REPORT/[facility]/EMERGENTY AFTER-HOURS PROCEDURE XR Chest, 1 View EXAM DATE/TIME: 07/22/2018 2:04 AM CLINICAL HISTORY: 57 years old, male; Signs and symptoms; Dyspnea and shortness of breath; Patient HX: Decreased sats, low o2 TECHNIQUE: XR of the chest, 1 view. COMPARISON: No relevant prior studies available. FINDINGS: Tubes, catheters and devices: There is a tunneled RIGHT hemodialysis catheter with tip in satisfactor y position. A nasogastric tube lies with its tip in the stomach. An endotracheal tube is present, lyi ng with its tip 4 cm above the matthew. Lungs: Diffuse bilateral lung interstitial opacities compatible with marked pulmonary edema and/or pn [place]. Pleural space: There is blunting of LEFT costophrenic ankle possibly representing small pleural effus ion. Heart/Mediastinum: Unremarkable. No cardiomegaly. Bones/joints: Unremarkable. IMPRESSION: Diffuse bilateral lung interstitial opacities compatible with marked pulmonary edema and/or pneumonia . Thank you for allowing us to participate in the care of your patient. Dictated and Authenticated by: Srinivasan Marroquin MD 07/22/2018 4:22 AM Central Time ([place] & [place]) FINAL REPORT CHEST ONE VIEW: History: Decreased 02 saturations. Comparison: Prior day. FINDINGS: The patient is intubated. Endotracheal tube tip in good position. Enteric tube tip in the projection of the gastric fundus. Increased interstitial markings throughout the lungs. Dialysis catheter is sim ilar. Layering effusions. IMPRESSION: 1. Worsening pulmonary edema. 2. Large bilateral pleural effusions. POS: OFF
--- NOTE | 2018-07-22 13:54 | RAD ---
PORTABLE AP CHEST X-RAY 07/21/18 HISTORY: Syncopal episode at dialysis. Code. COMPARISON: 07/21/18 at 1647 hours. FINDINGS: Tunneled right internal jugular vein hemodialysis catheter remains in place. The cardiac silhouette i s enlarged. Again noted are increased interstitial densities throughout the lungs bilaterally which m ay be related to chronic interstitial lung changes. Interstitial densities are greater at each lung b ase. Chest is unchanged compared to the prior exam. No pneumothorax or pleural effusion is seen. IMPRESSION: 1. Stable chest with findings likely related to chronic interstitial lung changes. 2. Cardiomegaly. POS: [facility]
--- NOTE | 2018-07-23 13:47 | DIS ---
DATE OF ADMISSION: 07/21/2018 DATE OF DISCHARGE: 07/22/2018 DISCHARGE DIAGNOSES: 1. Acute hypoxic respiratory failure and hypercapnic respiratory failure, with pulseless electrical activity arrest. 2. Septic shock. 3. Anoxic brain injury. 4. End-stage renal disease. 5. Systemic sclerosis. 6. Hepatitis C. The patient during his hospitalization. BRIEF SUMMARY OF HOSPITAL COURSE: This was a 57-year-old male, with a known history of systemic sclerosis, COPD, hepatitis C, end-stage renal disease. He initially presented with a chief complaint of syncope. During his admission and his stay in the emergency department, he was found to be in septic shock with subsequent multiorgan failure including acute hypoxic and hypercapnic respiratory failure, hepatitis with transaminitis, and hypoglycemia. He also subsequently went it to cardiopulmonary arrest, PEA arrest and required CPR. Subsequent to these events, conversations were had with the patient' family at bedside. The patient's post cardiopulmonary arrest appeared to have sustained significant anoxic brain injury. Conversation with patient's family, and the patient was subsequently made a DNR. Please see the hospitalization note, code note for further details. It was felt that the patient's etiology for his septic shock was perhaps the infected subclavian hemodialysis catheter. Job ID: [id number]
== END 2018-07-22 09:15 | disposition expired | DRG 314 ==
LOC: ERS 16:54 → CCU 21:18
PROVIDERS: ADMIT Internal Medicine; ATTEND Internal Medicine
PROC: 5A1945Z Respiratory Ventilation, 24-96 Consecutive Hours (ICD-10-PCS; principal; 2018-07-21)
PROC: 0BH17EZ Insertion of Endotracheal Airway into Trachea, Via Natural or Artificial Opening (ICD-10-PCS; 2018-07-21)
PROC: 3E033XZ Introduction of Vasopressor into Peripheral Vein, Percutaneous Approach (ICD-10-PCS; 2018-07-21)
PROC: 5A12012 Performance of Cardiac Output, Single, Manual (ICD-10-PCS; 2018-07-21)
PROC: 30233N1 Transfusion of Nonautologous Red Blood Cells into Peripheral Vein, Percutaneous Approach (ICD-10-PCS; 2018-07-21)
PROC: 02HV33Z Insertion of Infusion Device into Superior Vena Cava, Percutaneous Approach (ICD-10-PCS; 2018-07-21)
DX: T82.7XXA Infection and inflammatory reaction due to other cardiac and vascular devices, implants and grafts, initial encounter (principal); A41.9 Sepsis, unspecified organism; R65.21 Severe sepsis with septic shock; J96.01 Acute respiratory failure with hypoxia; N18.6 End stage renal disease; J96.02 Acute respiratory failure with hypercapnia; K57.92 Diverticulitis of intestine, part unspecified, without perforation or abscess without bleeding; G93.1 Anoxic brain damage, not elsewhere classified; B19.20 Unspecified viral hepatitis C without hepatic coma; Z99.2 Dependence on renal dialysis; I46.9 Cardiac arrest, cause unspecified; D64.9 Anemia, unspecified; M34.9 Systemic sclerosis, unspecified; Z51.5 Encounter for palliative care; J44.9 Chronic obstructive pulmonary disease, unspecified; I73.00 Raynaud's syndrome without gangrene
CPT/HCPCS: 31500; 36415; 36416; 36430; 36556; 70450; 71045; 71260; 74177; 76700; 80053; 82805; 83605; 83735; 84100; 84484; 85025; 85610; 85730; 86850; 86900; 86901; 87040; 87077; 87186; 92950; 93005; 94003; 94640; 94760; 96361; 96365; 96366; 96368; 96375; 96376; 99292; J0171; J0461; J2060; J2270; J2543; J2920; J3370; J7070; J7506; J7620; P9016